=== PATIENT | male | born 1980 | race Caucasian/White ===

== ENCOUNTER 2018-01-17 13:46 | Emergency (ER) | payer MEDICAID, SELFPAY ==
[2018-01-17 13:47] VITALS: BP 160/107; PULSE 68; RESP 16; TEMP 36.8; O2SAT 97; BMI 27.1
--- NOTE | 2018-01-17 14:00 | RAD_ITS ---
STUDY: X-RAY - RIGHT WRIST REASON FOR EXAM: Pain and swelling after lifting injury last night. TECHNIQUE: 3 view(s) of the wrist were obtained. COMPARISON: None. FINDINGS: Normal visualized distal radius and ulna. Normal radiocarpal articulation. Normal distal radioulnar articulation. Normal carpal bones. Normal carpal articulations. Normal carpometacarpal articulation of the thumb. Normal second through fifth carpometacarpal articulations. Normal visualized metacarpal bones. There is mild soft tissue swelling. RAD/Wrist min 3 Views IMPRESSION: Mild soft tissue swelling. No demonstrated fracture. Electronically Signed: Remi Miller MD at 15:00 EDT Tel , Service support ,
--- NOTE | 2018-01-17 14:26 | ED.DCSUM_ITS ---
- ER Visit Summary Date of Service: 01/17/18 Chief Complaint: Right wrist pain History of Present Illness: The patient is a 37 M who complains of right wrist pain. It started yesterday after he was moving hay. Pain is on the ulnar portion of the wrist. Pain is worse with movement. He took nothing for it at home. No history of any wrist surgeries Physical Examination: Vital signs reviewed. Right wrist exam reveals tenderness to palpation over Naty's tubercle. He does have painful range of motion. Test Results: X-rays per my interpretation revealed no acute findings. Emergency Department Course and Treatment: Patient will be discharged with naproxen for pain. He will ice and will follow up with his PCP. Treatment Plan: [] Disposition: Discharge Impression: Right wrist sprain This note was generated with [employer] dictation software. It may contain incorrect words, spelling, and punctuation that were not noted in review of the chart prior to signing ED Disposition - Plan for ED Patient: Chief Complaint: Upper Extremity Injury Referrals: Garrett Durham MD [Primary Care Provider] -
--- NOTE | 2018-01-17 14:26 | ED.DEP ---
ED Disposition - Plan for ED Patient: Disposition: Home or Assisted Living Chief Complaint: Upper Extremity Injury Instructions: ED Sprain Wrist Prescriptions: Naproxen [Naprosyn] 500 mg PO BID PRN #20 tab Referrals: Garrett Durham MD [Primary Care Provider] -
== END 2018-01-17 14:37 | disposition home or self-care (01) ==
PROVIDERS: Emergency Provider Emergency Medicine; Family Provider Family Medicine; PCP Family Medicine
DX: S63.501A Unspecified sprain of right wrist, initial encounter (principal); X50.3XXA Overexertion from repetitive movements, initial encounter; Y93.9 Activity, unspecified; Y92.89 Other specified places as the place of occurrence of the external cause; Y99.9 Unspecified external cause status
CPT/HCPCS: 73110; 99282

== ENCOUNTER → 2018-03-31 16:09 | Outpatient (CLI) | payer MEDICAID, SELFPAY ==
[2018-03-31 17:38] LABS: Absolute Lymphocyte Count 2.87 X10^3/ul (0.83-4.51); Absolute Neutrophil Count 3.8 X10^3/uL (2.0-7.7); Basophil# 0.03 X10^3/uL; Basophil% 0.4 % (0-1); Eosinophil# 0.28 X10^3/uL; Eosinophils% 3.8 % (0-5); Hemoglobin 15.5 g/dl (13.0-16.5); Lymphocyte # 2.87 X10^3/ul (4.0); Lymphocyte % 38.5 % (19-41); Mean Corp Hgb Conc 35.2 g/gl (32-36); Mean Corpuscular Hgb 32.8 pg (27.0-32.0); Mean Corpuscular Volume 93.2 fL (80-94); Mean Platelet Vol. 10.7 fl (6.2-12.0); Monocyte% 6.7 % (0-10); Neutrophil # 3.76 X10^3/uL (2.7-7.7); Neutrophil % 50.5 % (47-70); Platelet Count 282 K/mm3 (150-450); RBC Distribution Width CV 12.4 % (11.6-14.6); RBC Distribution Width SD 41.9 fl (35.1-43.9); Red Blood Count 4.72 M/mm3 (4.6-6.2); White Blood Count 7.5 K/mm3 (4.4-11.0)
[2018-03-31 17:43] LABS: POSITIVE COUNT NO; POSITIVE DIFFERENTIAL NO; POSITIVE MORPHOLOGY NO
[2018-03-31 18:37] LABS: Carbamazepine (Tegretol) 8.8 ug/mL (4.0-12.0)
[2018-03-31 18:43] LABS: AST(SGOT) 17 U/L (15-37); Alanine Aminotransfer ALT/SGPT 31 U/L (16-61); Albumin, Serum 3.7 g/dL (3.2-5.0); Alkaline Phosphatase 128 U/L (45-117); Anion Gap 10 (5-15); BUN 9 mg/dL (7-18); BUN/Creat Ratio 10.7 RATIO (10-20); Calcium,Total 9.1 mg/dL (8.5-10.1); Chloride 105 mmol/L (98-107); Creatinine, Serum 0.84 mg/dL (0.70-1.30); EST Glomerular Filtration Rate 108 mL/min (>60); Est Glom Filt Rate - Afr Amer 131 mL/min (>60); Globulin 3.8 g/dL (2.2-4.2); Glucose 92 mg/dL (74-106); Potassium 3.5 mmol/L (3.5-5.1); Protein, Total 7.5 g/dL (6.4-8.2); Sodium Level 142 mmol/L (136-145)
== END ==
PROVIDERS: Family Provider Family Medicine; PCP Family Medicine; Visit Provider Family Medicine
DX: G40.909 Epilepsy, unspecified, not intractable, without status epilepticus (principal)
CPT/HCPCS: 36415; 80053; 80156; 85025

== ENCOUNTER 2018-10-25 10:29 | Emergency (ER) | payer BC, SELFPAY ==
[2018-10-25 10:30] VITALS: BP 145/93; PULSE 70; RESP 14; TEMP 36.1; O2SAT 98; BMI 28.1
--- NOTE | 2018-10-25 11:01 | RAD_ITS ---
STUDY: X-RAY - LEFT HAND REASON FOR EXAM: Male, 38 years old. Soft tissue injury. TECHNIQUE: 3 view(s) of the hand. COMPARISON: None. FINDINGS: Normal radiocarpal articulation. Normal distal radioulnar joint. Normal visualized carpal bones. Normal carpal articulations Normal carpometacarpal articulation of the thumb. Normal second through fifth carpometacarpal joints. Normal metacarpi. Normal metacarpophalangeal joint of the thumb. Normal interphalangeal joint of the thumb. Normal proximal and distal phalanges of the thumb. Normal metacarpophalangeal joints of the second through fifth fingers. Normal proximal and distal interphalangeal joints of the second through fifth fingers. Normal phalanges of the second through fifth fingers. The soft tissue structures are unremarkable. RAD/Hand Min 3 Views IMPRESSION: Normal x-ray examination of the hand. Electronically Signed: Negro Mitchell, at 12:18 EDT , Service support ,
[2018-10-25] MEDS: Diphth,Pertuss(Acell),Tet Vac 0.5 ML Vial IM (11:17)
[2018-10-25] MEDS: Cephalexin 250 MG Capsule 500 MG PO (11:18)
--- NOTE | 2018-10-25 12:21 | ED.VISSUMM ---
- ER Visit Summary Date of Service: 10/25/18 Chief Complaint: Puncture wound left hand History of Present Illness: The patient is a 38 M who presents with a puncture wound to his left hand that occurred today. Patient states he was using a screwdriver to try to remove wood from a hole. Patient states the screwdriver went into his hand approximately 2 cm. Patient describes his pain as burning and sharp. Patient states the pain is worse with movement. Patient denies any paresthesias or weakness. Patient states his last tetanus was more than 10 years ago. Physical Examination: Vital signs are stable. Patient is afebrile. Patient is in no acute distress. Musculoskeletal exam revealed a puncture wound in the first webspace of the left hand. There is no active bleeding. There is tenderness to palpation over the first webspace. There is no surrounding erythema. There is good range of motion of the digits of the left hand. There are no deformities noted. There is no bony crepitance or step-off. Sensation was intact to light touch in all digits. Capillary refill is less than 2 seconds in all digits. Radial pulses are equal bilaterally. Test Results: X-rays of the left hand were obtained. There are no acute fractures or foreign bodies. Emergency Department Course and Treatment: Patient was given a tetanus booster here. Patient was given a dose of Keflex here. Patient was given a prescription for Keflex. Patient was instructed to follow-up with his primary care physician in 5 to 7 days. Patient understood and was agreeable with the plan. All questions were answered. Disposition: Discharge home Impression: Puncture wound left hand This note was generated with [employer] dictation software. It may contain incorrect words, spelling, and punctuation that were not noted in review of the chart prior to signing ED Disposition - Plan for ED Patient: Disposition: Home or Assisted Living Diagnosis: Puncture wound of left hand Instructions: ED Wound Puncture General Prescriptions: Cephalexin [Keflex] 500 mg PO Q6 #40 cap Referrals: Garrett Durham MD [Primary Care Provider] - 5-7 Days
--- NOTE | 2018-10-25 12:26 | ED.DCSUM_ITS ---
- ER Visit Summary Date of Service: 10/25/18 Chief Complaint: Puncture wound left hand History of Present Illness: The patient is a 38 M who presents with a puncture wound to his left hand that occurred today. Patient states he was using a screwdriver to try to remove wood from a hole. Patient states the screwdriver went into his hand approximately 2 cm. Patient describes his pain as burning and sharp. Patient states the pain is worse with movement. Patient denies any paresthesias or weakness. Patient states his last tetanus was more than 10 years ago. Physical Examination: Vital signs are stable. Patient is afebrile. Patient is in no acute distress. Musculoskeletal exam revealed a puncture wound in the first webspace of the left hand. There is no active bleeding. There is tenderness to palpation over the first webspace. There is no surrounding erythema. There is good range of motion of the digits of the left hand. There are no deformities noted. There is no bony crepitance or step-off. Sensation was intact to light touch in all digits. Capillary refill is less than 2 seconds in all digits. Radial pulses are equal bilaterally. Test Results: X-rays of the left hand were obtained. There are no acute fractures or foreign bodies. Emergency Department Course and Treatment: Patient was given a tetanus booster here. Patient was given a dose of Keflex here. Patient was given a prescr iption for Keflex. Patient was instructed to follow-up with his primary care physician in 5 to 7 days. Patient understood and was agreeable with the plan. All questions were answered. Disposition: Discharge home Impression: Puncture wound left hand This note was generated with [employer] dictation software. It may contain incorrect words, spelling, and punctuation that were not noted in review of the chart prior to signing ED Disposition - Plan for ED Patient: Disposition: Home or Assisted Living Diagnosis: Puncture wound of left hand Instructions: ED Wound Puncture General Prescriptions: Cephalexin [Keflex] 500 mg PO Q6 #40 cap Referrals: Garrett Durham MD [Primary Care Provider] - 5-7 Days
== END 2018-10-25 12:37 | disposition home or self-care (01) ==
PROVIDERS: Emergency Provider Emergency Medicine; Family Provider Family Medicine; PCP Family Medicine
DX: S61.432A Puncture wound without foreign body of left hand, initial encounter (principal); W27.0XXA Contact with workbench tool, initial encounter; Y93.9 Activity, unspecified; Y92.89 Other specified places as the place of occurrence of the external cause; Y99.9 Unspecified external cause status; Z23 Encounter for immunization; Z72.0 Tobacco use
CPT/HCPCS: 73130; 90471; 90715; 99283

== ENCOUNTER → 2019-02-09 09:04 | Outpatient (CLI) | payer BC, SELFPAY ==
[2019-02-09 10:10] LABS: Absolute Lymphocyte Count 2.39 X10^3/uL (0.83-4.51); Basophil# 0.03 X10^3/uL; Basophil% 0.3 % (0-1); Eosinophil# 0.07 X10^3/uL; Eosinophils% 0.8 % (0-5); Hematocrit 47.6 % (40-54); Hemoglobin 16.2 g/dL (13.0-16.5); Lymphocyte # 2.39 X10^3/ul (4.0); Lymphocyte % 26.7 % (19-41); Mean Corpuscular Hgb 32.3 pg (27.0-32.0); Mean Corpuscular Volume 94.8 fL (80-94); Mean Platelet Vol. 10.4 fl (6.2-12.0); Monocyte# 0.46 X10^3/uL; Monocyte% 5.1 % (0-10); NRBC Flagged by Analyzer 0 % (0-5); Neutrophil # 5.97 X10^3/uL (2.7-7.7); Neutrophil % 66.8 % (47-70); Platelet Count 252 K/mm3 (150-450); RBC Distribution Width CV 12.2 % (11.6-14.6); RBC Distribution Width SD 42.3 fl (35.1-43.9); Red Blood Count 5.02 M/mm3 (4.6-6.2)
[2019-02-09 10:29] LABS: ALB/GLOB Ratio 1.1 RATIO (0.9-2.4); AST(SGOT) 16 U/L (15-37); Alanine Aminotransfer ALT/SGPT 33 U/L (16-61); Albumin, Serum 3.9 g/dL (3.2-5.0); Alkaline Phosphatase 110 U/L (45-117); Anion Gap 7 (5-15); BUN 10 mg/dL (7-18); BUN/Creat Ratio 10.6 RATIO (10-20); Chloride 106 mmol/L (98-107); Cholesterol 211 mg/dL (200); Creatinine, Serum 0.95 mg/dL (0.70-1.30); EST Glomerular Filtration Rate 94 mL/min (>60); Est Glom Filt Rate - Afr Amer 113 mL/min (>60); Globulin 3.7 g/dL (2.2-4.2); Glucose 109 mg/dL (74-106); High Density Lipoprotein 58 mg/dL; Potassium 3.9 mmol/L (3.5-5.1); Protein, Total 7.6 g/dL (6.4-8.2); Sodium Level 142 mmol/L (136-145); Triglycerides 107 mg/dL; Very Low Density Lipoprotein 21 mg/dL (5-40)
[2019-02-09 10:44] LABS: Carbamazepine (Tegretol) 9.3 ug/mL (4.0-12.0)
== END ==
PROVIDERS: Family Provider Family Medicine; PCP Family Medicine; Referring Provider Family Medicine; Visit Provider Family Medicine
DX: Z13.220 Encounter for screening for lipoid disorders (principal); G40.909 Epilepsy, unspecified, not intractable, without status epilepticus
CPT/HCPCS: 36415; 80053; 80061; 80156; 85025

== ENCOUNTER → 2019-09-11 08:49 | Outpatient (CLI) | payer OTHER, SELFPAY ==
--- NOTE | 2019-09-11 08:59 | RAD_ITS ---
STUDY: X-RAY CHEST REASON FOR EXAM: Male, 38 years old. COUGH x2 WEEKS, FATIGUE, DIARRHEA, VOMITING, SORE THROAT AND LOW-GRADE FEVER TECHNIQUE: PA and lateral views of the chest. COMPARISON: Comparison is made with prior study dated March 23, 2017. FINDINGS: Left clavicular fracture repaired with a screw and plate fixation device. There is good alignment. Stable mild increased markings at the lung bases suggestive of scarring. There is no demonstrated pleural abnormality. Normal size heart. Normal mediastinum and melisa. Normal visualized pulmonary arteries. Normal visualized aortic arch and descending thoracic aorta. Normal visualized thoracic spine. Normal visualized ribs, clavicles, and shoulders. There is no demonstrated abnormality of the visualized soft tissue structures of the upper abdomen. RAD/Chest PA and Lateral IMPRESSION: Mild degree of bibasilar scarring. Status post open reduction internal fixation of the left clavicular fracture. Electronically Signed: Negro Mitchell, at 9:15 EDT , Service support ,
[2019-09-11 10:20] LABS: Absolute Lymphocyte Count 2.57 X10^3/uL (0.83-4.51); Absolute Neutrophil Count 5.5 X10^3/uL (2.0-7.7); Basophil# 0.05 X10^3/uL; Basophil% 0.6 % (0-1); Eosinophil# 0.21 X10^3/uL; Eosinophils% 2.4 % (0-5); Hematocrit 49.9 % (40-54); Hemoglobin 17.4 g/dL (13.0-16.5); Lymphocyte # 2.57 X10^3/ul (4.0); Mean Corp Hgb Conc 34.9 g/dL (32-36); Mean Corpuscular Hgb 33.3 pg (27.0-32.0); Mean Corpuscular Volume 95.6 fL (80-94); Mean Platelet Vol. 10.8 fl (6.2-12.0); Monocyte# 0.49 X10^3/uL; Monocyte% 5.5 % (0-10); NRBC Flagged by Analyzer 0 % (0-5); Neutrophil % 62.2 % (47-70); Platelet Count 204 K/mm3 (150-450); RBC Distribution Width CV 12.9 % (11.6-14.6); RBC Distribution Width SD 44.9 fl (35.1-43.9); Red Blood Count 5.22 M/mm3 (4.6-6.2); White Blood Count 8.9 K/mm3 (4.4-11.0)
[2019-09-11 10:38] LABS: ALB/GLOB Ratio 1.2 RATIO (0.9-2.4); AST(SGOT) 32 U/L (15-37); Alanine Aminotransfer ALT/SGPT 55 U/L (16-61); Albumin, Serum 4.3 g/dL (3.2-5.0); Alkaline Phosphatase 127 U/L (45-117); Anion Gap 4 (5-15); BUN 16 mg/dL (7-18); BUN/Creat Ratio 16.1 RATIO (10-20); Calcium,Total 9.2 mg/dL (8.5-10.1); Chloride 106 mmol/L (98-107); Cholesterol 264 mg/dL (200); Creatinine, Serum 0.99 mg/dL (0.70-1.30); EST Glomerular Filtration Rate 88 mL/min (>60); Est Glom Filt Rate - Afr Amer 107 mL/min (>60); Globulin 3.7 g/dL (2.2-4.2); Glucose 88 mg/dL (74-106); High Density Lipoprotein 66 mg/dL; Potassium 3.9 mmol/L (3.5-5.1); Sodium Level 141 mmol/L (136-145); Triglycerides 181 mg/dL; Very Low Density Lipoprotein 36 mg/dL (5-40)
[2019-09-11 10:51] LABS: Carbamazepine (Tegretol) 11.3 ug/mL (4.0-12.0)
[2019-09-11 13:27] LABS: Magnesium 2.1 mg/dL (1.6-2.6)
== END ==
PROVIDERS: PCP Family Medicine; Referring Provider Family Medicine; Visit Provider Family Medicine
DX: R05 Cough (principal); G40.909 Epilepsy, unspecified, not intractable, without status epilepticus; Z13.220 Encounter for screening for lipoid disorders
CPT/HCPCS: 36415; 71046; 80053; 80061; 80156; 83735; 85025

== ENCOUNTER → 2019-09-21 08:50 | Outpatient (CLI) | payer OTHER, SELFPAY | PROVIDERS: PCP Family Medicine; Referring Provider Family Medicine; Visit Provider Family Medicine | DX: R19.7 Diarrhea, unspecified (principal) | CPT/HCPCS: 87177; 87209; 87506 ==

== ENCOUNTER → 2020-08-01 08:29 | Outpatient (CLI) | payer OTHER, SELFPAY ==
[2020-08-01 10:24] LABS: Absolute Lymphocyte Count 1.78 X10^3/uL (0.83-4.51); Absolute Neutrophil Count 3.3 X10^3/uL (2.0-7.7); Basophil# 0.04 X10^3/uL; Basophil% 0.7 % (0-1); Eosinophils% 1.8 % (0-5); Hematocrit 45.4 % (40-54); Hemoglobin 15.3 g/dL (13.0-16.5); Lymphocyte # 1.78 X10^3/ul (4.0); Lymphocyte % 31.4 % (19-41); Mean Corp Hgb Conc 33.7 g/dL (32-36); Mean Corpuscular Hgb 30.8 pg (27.0-32.0); Mean Corpuscular Volume 91.3 fL (80-94); Mean Platelet Vol. 10.5 fl (6.2-12.0); Monocyte# 0.39 X10^3/uL; Monocyte% 6.9 % (0-10); NRBC Flagged by Analyzer 0 % (0-5); Neutrophil # 3.34 X10^3/uL (2.7-7.7); Platelet Count 273 K/mm3 (150-450); RBC Distribution Width CV 12.5 % (11.6-14.6); RBC Distribution Width SD 41.8 fl (35.1-43.9); Red Blood Count 4.97 M/mm3 (4.6-6.2); White Blood Count 5.7 K/mm3 (4.4-11.0)
[2020-08-01 10:41] LABS: ALB/GLOB Ratio 1.1 RATIO (0.9-2.4); AST(SGOT) 20 U/L (15-37); Alanine Aminotransfer ALT/SGPT 24 U/L (16-61); Alkaline Phosphatase 155 U/L (45-117); Anion Gap 4 (5-15); BUN 9 mg/dL (7-18); BUN/Creat Ratio 8.3 RATIO (10-20); Calcium,Total 9.2 mg/dL (8.5-10.1); Chloride 103 mmol/L (98-107); Creatinine, Serum 1.08 mg/dL (0.70-1.30); EST Glomerular Filtration Rate 80 mL/min (>60); Est Glom Filt Rate - Afr Amer 97 mL/min (>60); Globulin 3.5 g/dL (2.2-4.2); Glucose 70 mg/dL (74-106); Potassium 3.8 mmol/L (3.5-5.1); Protein, Total 7.5 g/dL (6.4-8.2); Sodium Level 137 mmol/L (136-145); Thyroid Stim Hormone (TSH) 0.42 uIU/mL (0.358-3.74)
[2020-08-01 11:24] LABS: Carbamazepine (Tegretol) 11.1 ug/mL (4.0-12.0)
== END ==
PROVIDERS: PCP Family Medicine; Referring Provider Family Medicine; Visit Provider Family Medicine
DX: Z79.899 Other long term (current) drug therapy (principal)
CPT/HCPCS: 36415; 80053; 80156; 84443; 85025

== ENCOUNTER 2020-12-19 15:51 | Emergency (ER) | payer OTHER, SELFPAY ==
[2020-12-19 15:52] VITALS: BP 137/77; PULSE 77; RESP 15; TEMP 37; O2SAT 98; BMI 25.8
--- NOTE | 2020-12-19 16:01 | RAD_ITS ---
STUDY: X-RAY - RIGHT SHOULDER REASON FOR EXAM: Male, 40 years old. fall TECHNIQUE: 4 view(s) of the shoulder. COMPARISON: None. FINDINGS: Normal glenohumeral articulation. Normal acromioclavicular joint. Normal acromion. Normal humeral head and visualized proximal humerus. The soft tissue structures are unremarkable. There is no demonstrated fracture. Normal visualized pulmonary apex. RAD/Shoulder min 2 Views IMPRESSION: Normal x-ray examination of the shoulder. Electronically Signed: Marcellus Estrada MD at 16:48 EDT , Service support ,
--- NOTE | 2020-12-19 16:02 | EX.ED.UPPERE ---
HPI History of Present Illness Chief Complaint: Upper Extremity Injury Detail of Chief Complaint: Fall with injury to right shoulder Informant: patient Narrative Narrative: Patient states that he was up in a tree cutting firewood about 2 hours ago when he lost his balance and fell out of the tree. Patient states this happened several hours ago. He denies loss of consciousness. He thinks he landed on his right shoulder and upper back. He denies head or neck pain. He complains of pain to the right posterior shoulder and elbow area. Denies chest or abdomen pain. He denies difficulty breathing. He denies back pain otherwise. Patient is right-hand dominant. [facility] Medical History (Updated 12/19/20 @ 17:[address] Loly Hollis, ) Anxiety Contusion of right shoulder region Depression Seizures Home Medications buspirone 30 mg PO BID 12/24/14 [History Last Taken Unknown] levetiracetam 500 mg PO QHS 12/24/14 [History Last Taken 03/23/17 07:00 500 MG] citalopram 20 mg tablet 40 mg PO QDAY 05/31/17 [History Last Taken Unknown] carbamazepine 200 mg PO 5X/DAY 10/25/18 [History Last Taken Unknown] aripiprazole 5 mg PO DAILY 12/19/20 [History Last Taken Unknown] hydrocodone-acetaminophen 1 tab PO Q4H PRN PRN 2 Days #10 tablet 12/19/20 [Rx Last Taken Unknown] levetiracetam [Keppra] 750 mg PO BREAKFAST 12/19/20 [History Last Taken Unknown] omeprazole 40 mg PO DAILY 12/19/20 [History Last Taken Unknown] Allergy/AdvReac Type Severity Reaction Status Date / Time MUSCLE RELAXANTS Allergy SEIZURE Uncoded 12/19/20 15:54 LIKE ACTIVITY Surgical History History of open reduction and internal fixation (ORIF) procedure laser spine Social History (Updated 08/05/18 @ 15:51 by Alfredo SABILLON, RAMANDEEP) Smoking Status: Former smoker ROS ROS ED Constitutional Constitutional ED: Reports systems reviewed and no addt'l complaints, except as documented; Denies body ache(s), change in weight or chills Eyes Eyes: Denies acute decrease in peripheral vision, change in vision, double vision or loss of vision ENT ENT ED: Reports none; Denies ear pain, lip swelling, loss taste/smell, neck pain, otalgia or sore throat Cardiovascular Cardiovascular: Reports none; Denies abdominal pain, chest pain with activity, leg edema, lightheadedness, palpitations, rapid heart rate or syncope Respiratory/Chest Respiratory/Chest: Reports none; Denies change in mental status, dry cough, dyspnea, hemoptysis, shortness of breath at rest or shortness of breath with exertion Gastrointestinal Gastrointestinal: Reports none; Denies abdominal pain, change in stool character, diarrhea, hematemesis, hematochezia, melena, rectal bleeding or vomiting Genitourinary Genitourinary ED: Reports none; Denies abdominal discomfort, anuria, dysuria, genital pain or polyuria Musculoskeletal Musculoskeletal: Reports none and other Details: Right shoulder/arm pain ; Denies arthralgias, back pain, difficulty walking, extremity pain, muscle weakness or myalgias Integumentary Reports none; Denies abscess or rash Neurologic Neurologic: Reports none; Denies abnormal gait, confusion, focal weakness, frequent falls, headache(s), loss of vision, numbness, paresthesias, radicular pain, vertigo or weakness Psychiatric Psychiatric: Reports systems reviewed and no addt'l complaints, except as documented and none; Denies behavioral changes, confusion, difficulty concentrating, hallucinations, suicidal ideation, tactile hallucinations or visual hallucinations Endocrine Endocrinology: Denies none, cold intolerance, excessive sweating, fatigue or heat intolerance Hematologic/Lymphatic Hematologic/Lymphatic: Reports none; Denies anemia, easy bleeding or easy bruising Allergic/Immunologic Allergic/Immunologic ED: Denies as per HPI, none, lip swelling, mouth swelling, throat swelling, tongue swelling or hives EXAM Physical Exam Const Vital Signs: 12/19/20 15:52 Temperature 98.6 F Temperature Source Temporal Pulse Rate 77 Respiratory Rate 15 Blood Pressure 137/77 H Blood Pressure Mean 97 Pulse Ox 98 Oxygen Delivery Method Room Air Positive well nourished and well developed General Appearance ED: well developed and NAD HEENT Reports TM's clear and moist mucous membranes normocephalic and atraumatic; Negative for trauma or tenderness Tympanic Membrane ED: Yes TM's clear Eyes PERRL and EOMs intact bilaterally General Eye ED: Negative for pale conjunctiva or scleral icterus Neck no lymphadenopathy, supple and no JVD General: Negative for tenderness Chest Wall inspection of chest normal and palpation of chest normal Chest: Negative for tenderness Resp normal respiratory effort and clear to auscultation bilaterally Effort and Inspection: Negative for respiratory distress or pain with movement Auscultation: Negative for rhonchi, wheezes or diminished lung sounds Cardio regular rate, regular rhythm, S1 normal heart sound, S2 normal heart sound and no murmurs Peripheral Pulses: pulses 2+ throughout GI normal to inspection, nondistended, normoactive bowel sounds, soft to palpation, non-tender, non-distended and no masses Back/Spine no CVA tenderness and no thoracic nor lumbar tenderness Extremity normal to inspection Extremity Narrative: Evaluation of the right shoulder reveals some soft tissue swelling over the posterior aspect of the shoulder and over the scapula that is tender to palpation. Patient has some mild tenderness over the glenohumeral joint. Patient has some tenderness at the elbow diffusely. No obvious deformity noted at the shoulder or elbow. Neurovascular intact distally. General Extremety ED: Negative for edema General Extremity: Negative for edema Neuro oriented x3, CN's II-XII intact bilaterally, no sensory deficits noted and gait normal Sensorium / Orientation: awake, alert, oriented to person, oriented to place and oriented to time Motor Exam: strength 5/5 throughout and strength abnormal Psych mental status grossly normal Skin no rashes or lesions noted and no wounds MDM MDM MDM Narrative Medical decision making narrative: X-ray of right shoulder, right scapula, and right elbow obtained showed no fractures. Patient was given a sling. He will be given a prescription for few [place]. Patient advised to follow-up with primary care physician in 5 to 7 days. Radiography Diagnostic Testing: X-rays of right elbow, right shoulder, and right scapula obtained interpreted by myself as no acute fractures. Radiology in agreement. Discharge Plan Triage Chief Complaint: Upper Extremity Injury ED Provider: Loly Hollis Dx/Rx/DC Orders Clinical Impression: Contusion of right shoulder region, Contusion of back, Contusion of elbow Instructions: ED Contusion, Elbow, ED Shoulder Contusion Prescriptions: New hydrocodone-acetaminophen [hydrocodone-acetaminophen] 1 TABLET tablet 1 tab PO Q4H PRN PRN (Reason: Pain) 2 Days Qty: 10 RF: 0 No Action citalopram 20 mg tablet 40 mg PO QDAY RF: 0 levetiracetam 500 MG tablet 500 mg PO QHS RF: 0 buspirone 30 MG tablet 30 mg PO BID RF: 0 carbamazepine 200 MG tablet 200 mg PO 5X/DAY RF: 0 omeprazole 40 mg Capsule,Delayed Release(Dr/Ec) 40 mg PO DAILY RF: 0 levetiracetam [Keppra] 750 mg Tablet 750 mg PO BREAKFAST RF: 0 aripiprazole 5 mg Tablet 5 mg PO DAILY RF: 0 Primary Care Provider: Garrett Ramirez Referrals: Garrett Ramirez MD [Primary Care Provider] - 5-7 Days Disposition Disposition: Home, Self Care
--- NOTE | 2020-12-19 16:16 | RAD_ITS ---
STUDY: X-RAY - RIGHT ELBOW REASON FOR EXAM: Male, 40 years old. FELL OUT OF A TREE AND LANDED ON HIS RIGHT SHOULDER. PAIN RADIATING DOWN ARM TO ELBOW TECHNIQUE: 3 view(s) of the elbow. COMPARISON: None. FINDINGS: Normal visualized humerus, radius and ulna. Normal radiocapitellar and ulnotrochlear articulations. The soft tissue structures are unremarkable. There is no demonstrated fracture. RAD/Elbow min 3 Views IMPRESSION: Normal x-ray examination of the elbow. Electronically Signed: Marcellus Estrada MD at 16:49 EDT , Service support ,
--- NOTE | 2020-12-19 16:16 | RAD_ITS ---
STUDY: X-RAY - RIGHT SCAPULA REASON FOR EXAM: Male, 40 years old. FELL OUT OF TREE TODAY. PAIN POSTERIOR SCAPULA JUST MEDIAL TO SHOULDER JOINT TECHNIQUE: 2 view(s) of the scapula were obtained. COMPARISON: Right shoulder x-ray on the same day FINDINGS: Normal scapula, including the osseous glenoid rim, acromion, scapular neck, spine, coracoid process, and visualized body. Normal glenohumeral articulation. Normal acromioclavicular joint. Normal visualized humeral head. Normal visualized pulmonary apex. RAD/Scapula IMPRESSION: Normal plain film x-ray examination of the scapula. Electronically Signed: Marcellus Estrada MD at 17:00 EDT , Service support ,
== END 2020-12-19 17:35 | disposition home or self-care (01) ==
PROVIDERS: Emergency Provider Emergency Medicine; PCP Family Medicine
DX: S40.011A Contusion of right shoulder, initial encounter (principal); S20.229A Contusion of unspecified back wall of thorax, initial encounter; S50.01XA Contusion of right elbow, initial encounter; F41.9 Anxiety disorder, unspecified; Z79.899 Other long term (current) drug therapy; Z87.891 Personal history of nicotine dependence; W14.XXXA Fall from tree, initial encounter
CPT/HCPCS: 73010; 73030; 73080; 99284

== ENCOUNTER → 2020-12-26 11:17 | Outpatient (CLI) | payer OTHER, SELFPAY ==
[2020-12-19 15:52] VITALS: BMI 25.8
[2020-12-26 12:10] LABS: Absolute Lymphocyte Count 2.46 X10^3/uL (0.83-4.51); Absolute Neutrophil Count 5.6 X10^3/uL (2.0-7.7); Basophil# 0.04 X10^3/uL; Basophil% 0.5 % (0-1); Eosinophils% 1.2 % (0-5); Hematocrit 44.1 % (40-54); Hemoglobin 14.9 g/dL (13.0-16.5); Lymphocyte # 2.46 X10^3/ul (0.83-4.51); Lymphocyte % 28.6 % (19-41); Mean Corp Hgb Conc 33.8 g/dL (32-36); Mean Corpuscular Hgb 31.7 pg (27.0-32.0); Mean Corpuscular Volume 93.8 fL (80-94); Mean Platelet Vol. 10.6 fl (6.2-12.0); Monocyte# 0.41 X10^3/uL; Monocyte% 4.8 % (0-10); NRBC Flagged by Analyzer 0 % (0-5); Neutrophil # 5.55 X10^3/uL (2.7-7.7); Neutrophil % 64.4 % (47-70); Platelet Count 248 K/mm3 (150-450); RBC Distribution Width CV 13.6 % (11.6-14.6); RBC Distribution Width SD 46.9 fl (35.1-43.9); White Blood Count 8.6 K/mm3 (4.4-11.0)
[2020-12-26 12:42] LABS: Anion Gap 9 (5-15); BUN 8 mg/dL (7-18); BUN/Creat Ratio 8.8 RATIO (10-20); Calcium,Total 8.6 mg/dL (8.5-10.1); Chloride 98 mmol/L (98-107); Cholesterol 209 mg/dL (200); Creatinine, Serum 0.91 mg/dL (0.70-1.30); EST Glomerular Filtration Rate 97 mL/min (>60); Est Glom Filt Rate - Afr Amer 118 mL/min (>60); Glucose 102 mg/dL (74-106); High Density Lipoprotein 71 mg/dL; Potassium 3.7 mmol/L (3.5-5.1); Sodium Level 137 mmol/L (136-145); Triglycerides 138 mg/dL; Very Low Density Lipoprotein 28 mg/dL (5-40)
[2020-12-26 12:48] LABS: Carbamazepine (Tegretol) 12.1 ug/mL (4.0-12.0)
[2020-12-29 07:32] LABS: KEPPRA (LEVETIRACETAM) 12.7 ug/mL (10.0-40.0)
== END ==
PROVIDERS: PCP Family Medicine; Referring Provider Family Medicine; Visit Provider Family Medicine
DX: E78.5 Hyperlipidemia, unspecified (principal); G40.909 Epilepsy, unspecified, not intractable, without status epilepticus
CPT/HCPCS: 36415; 80048; 80061; 80156; 80177; 85025

== ENCOUNTER 2021-06-10 13:51 | Outpatient (RCR) | payer OTHER, SELFPAY ==
--- NOTE | 2021-06-10 15:32 | HP.PTEVAL ---
Patient's Visit Information SHANDRA HOUSTON is a 40 year old M referred to Physical Therapy by Dr. Semaj Godoy, with a diagnosis of BERTOLOTTIS SYNDROME. Date of Evaluation: 06/10/21 Physical Therapist: Cesar Diop, PT, Cert MDT, OCS - Visit Plan Frequency: 1-2x /Week Duration: 4 Weeks Plan: SEIZURES PRECAUTIONS. PT INTERVENTIONS PT DLS ,POSTURAL EX'S ,LE FLEXABLITY AND KHADAR EX'S - Subjective This 40 y/o male presents physical therapy with lumbar pain with radicular symptoms right lateral leg to knee. Patient has had these symptoms for~ 6 years . Patient initially inquired lumbar pain bending over to picking a part. Tried PT and had epidural injection ~ years ago. Symptoms persisted thus seen DR Godoy. 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 Not a surgical candidate. recommended PT .Aggravating factors sitting, bending ,lifting ,laying down . Alleviating factors standing ,walking. Coughing/sneezing -. Denies paresthesia/tingling. Bowel/bladder -. Patient able to sleep at night . No abnormal night pain. 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 SOCAIL: . VOCATION: [employer] - Pain Bilateral Back Pain Intensity (Out of 10): 4 Pain Intensity Range: 10 - Objective POSTURE: slouched posture. PALAPTION: unremarkable. SYMMTRIES: align. LUMBAR ROM: flexion min loss, extension mod loss, side glides mod loss. FLEXABLITY: hamstrings mod loss. MMT: quads/hams 4/5,hip flexion 4/5,ankle 5/5 - Special Tests L/S Slump test left side: Positive L/S Slump test right side: Positive L/S Left Straight Leg Raise: Negative L/S Right Straight Leg Raise: Positive Lumbar Standing: Flexion - Mechanical Response: No effect Lumbar Standing: Flexion - Symptoms During Testing: Increases Lumbar Standing: Flexion - Symptoms After Testing: Worse Lumbar Standing: Extension - Mechanical Response: No effect Lumbar Standing: Extension - Symptoms During Testing: Increases Lumbar Standing: Extension - Symptoms After Testing: Worse Lumbar Standing: Right Side Glides - Mechanical Response: No effect Lumbar Standing: Right Side [place] - Symptoms During Testing: No effect Lumbar Standing: Right Side [place] - Symptoms After Testing: No effect Lumbar Standing: Left Side [place] - Mechanical Response: No effect Lumbar Standing: Left Side [place] - Symptoms During Testing: No effect Lumbar Standing: Left Side [place] - Symptoms After Testing: No effect Lumbar Lying: Flexion - Mechanical Response: No effect Lumbar Lying: Flexion - Symptoms During Testing: No effect Lumbar Lying: Flexion - Symptoms After Testing: No effect Lumbar Lying: Extension - Mechanical Response: No effect Lumbar Lying: Extension - Symptoms During Testing: Increases Lumbar Lying: Extension - Symptoms After Testing: No worse - Balance/Special Test Scores Oswestry Low Back Score: 19 - Goals Goal 1:: I with HEP for back Goal Time Frame: 4-6 Weeks Goal 2:: Patient improve posture/body mechanics 90% of the time. Goal Time Frame: 4-6 Weeks Goal 3:: Patient to demonstrate 50%vimprovement with decrease back pain to improve function Goal Time Frame: 4-6 Weeks Goal 4:: Patient to improve lumbar ROM for function of recovery Goal Time Frame: 4-6 Weeks Goal 5:: Patient to improve back owestry score by 5 points to improve QOL and function Goal Time Frame: 4-6 Weeks - Rehabilitation Potential Physical Therapy Diagnosis: This patient has symmetrical low back pain with radicular symptoms left leg with pain with position ,motion testing , affects jobs and ADLS thus benefit from skilled PT Rehabilitation Potential: Good - Anticipated Interventions Patient/Client Instruction: Educate patient on: Condition, Plan of Care For the Purpose of:: To decrease pain, To increase ROM, To improve muscle performance and motor function, To improve ability to perform ADL's, To improve performance and independence with ADL's, To improve ability of physical actions for home/community/work/leisure, To improve health of tissue, To decrease soft tissue restriction, To increase flexibility/ROM, To prevent re-injury Therapeutic Exercise to Include: Strength training, Body mechanics, Postural training, Flexibilty training, Gait and locomotor training, Dynamic Lumbar Stabilization, Khadar Exercises For the Purpose of:: To decrease pain, To increase ROM, To improve muscle performance and motor function, To improve ability to perform ADL's, To increase tolerance to activity/condition/position, To improve ability of physical actions for home/community/work/leisure, To improve health of tissue, To decrease soft tissue restriction, To increase flexibility/ROM, To reduce risk of recurrence, To prevent re-injury Manual Therapy Techniques to Include: Manual lymph drainage Comment: LUMBAR For the Purpose of:: To decrease pain, To increase ROM Ultrasound (thermal/non thermal): Yes For the Purpose of:: To decrease pain, To increase ROM, To improve health of tissue, To decrease soft tissue restriction Thank you for the opportunity to evaluate your patient. For Medicare and Medicare HMO plans, please review the plan of care and approve it. It will need to be FAXED BACK to us at [phone] for Medicare purposes. For Medicare only, by signing this I certify the plan of care. Please let me know if there are questions or concerns regarding this plan of care. Physician Signature: Date:
--- NOTE | 2021-07-01 12:58 | HP.PT.NRP ---
SHANDRA HOUSTON was seen in my office for initial evaluation on 06/10/21. The following Plan of Care was established for this patient: Initial Frequency: 1-2x /Week Initial Duration: 4 Weeks Patient/Client Instruction: Educate patient on: Condition, Plan of Care For the Purpose of:: To decrease pain, To increase ROM, To improve muscle performance and motor function, To improve ability to perform ADL's, To improve performance and independence with ADL's, To improve ability of physical actions for home/community/work/leisure, To improve health of tissue, To decrease soft tissue restriction, To increase flexibility/ROM, To prevent re-injury Therapeutic Exercise to Include: Strength training, Body mechanics, Postural training, Flexibilty training, Gait and locomotor training, Dynamic Lumbar Stabilization, Abdiaziz Exercises For the Purpose of:: To decrease pain, To increase ROM, To improve muscle performance and motor function, To improve ability to perform ADL's, To increase tolerance to activity/condition/position, To improve ability of physical actions for home/community/work/leisure, To improve health of tissue, To decrease soft tissue restriction, To increase flexibility/ROM, To reduce risk of recurrence, To prevent re-injury Manual Therapy Techniques to Include: Manual lymph drainage Comment: LUMBAR For the Purpose of:: To decrease pain, To increase ROM Ultrasound (thermal/non thermal): Yes For the Purpose of:: To decrease pain, To increase ROM, To improve health of tissue, To decrease soft tissue restriction This patient was last seen in our office . Pertinent comments regarding their Physical therapy will appear below: Patient was seen for PT for Initial PT evaluation for HEP At this point I will be discontinuing this patient from physical therapy. I would be happy to see this patient again in the future if found appropriate by the physician. Thank you! Cesar Diop, PT, Cert MDT, OCS Balance/Gait/Functional tests - Balance/Special Test Scores Oswestry Low Back Score: 19
== END 2021-06-10 19:00 | disposition home or self-care (01) ==
LOC: PT 13:51
PROVIDERS: PCP Family Medicine; Referring Provider Orthopaedic Surgery; Visit Provider Orthopaedic Surgery
DX: Q76.49 Other congenital malformations of spine, not associated with scoliosis (principal)
CPT/HCPCS: 97110; 97162

== ENCOUNTER → 2022-01-26 | Outpatient (CLI) | payer BC, SELFPAY ==
[2022-01-26 12:01] LABS: Absolute Lymphocyte Count 2.34 X10^3/uL (0.83-4.51); Absolute Neutrophil Count 6.1 X10^3/uL (2.0-7.7); Basophil# 0.02 X10^3/uL; Basophil% 0.2 % (0-1); Eosinophil# 0.19 X10^3/uL; Hematocrit 46.4 % (40-54); Hemoglobin 16.2 g/dL (13.0-16.5); Lymphocyte # 2.34 X10^3/ul (0.83-4.51); Lymphocyte % 24.8 % (19-41); Mean Corp Hgb Conc 34.9 g/dL (32-36); Mean Corpuscular Hgb 33.2 pg (27.0-32.0); Mean Corpuscular Volume 95.1 fL (80-94); Mean Platelet Vol. 10.8 fl (6.2-12.0); Monocyte# 0.73 X10^3/uL; Monocyte% 7.7 % (0-10); NRBC Flagged by Analyzer 0 % (0-5); Neutrophil # 6.14 X10^3/uL (2.7-7.7); Platelet Count 222 K/mm3 (150-450); RBC Distribution Width CV 11.9 % (11.6-14.6); RBC Distribution Width SD 41.6 fl (35.1-43.9); Red Blood Count 4.88 M/mm3 (4.6-6.2); White Blood Count 9.5 K/mm3 (4.4-11.0)
[2022-01-26 12:55] LABS: ALB/GLOB Ratio 1.2 RATIO (0.9-2.4); AST(SGOT) 25 U/L (15-37); Alanine Aminotransfer ALT/SGPT 44 U/L (16-61); Albumin, Serum 4.1 g/dL (3.2-5.0); Alkaline Phosphatase 147 U/L (45-117); Anion Gap 8 (5-15); BUN 13 mg/dL (7-18); BUN/Creat Ratio 12.7 RATIO (10-20); Calcium,Total 9.8 mg/dL (8.5-10.1); Chloride 104 mmol/L (98-107); Creatinine, Serum 1.02 mg/dL (0.70-1.30); EST Glomerular Filtration Rate 85 mL/min (>60); Est Glom Filt Rate - Afr Amer 102 mL/min (>60); Globulin 3.4 g/dL (2.2-4.2); Glucose 84 mg/dL (74-106); Protein, Total 7.5 g/dL (6.4-8.2); Sodium Level 141 mmol/L (136-145)
[2022-01-30 11:35] LABS: KEPPRA (LEVETIRACETAM) 10.1 ug/mL (10.0-40.0)
== END | disposition home or self-care (01) ==
LOC: MFPLAB 10:58
PROVIDERS: PCP Family Medicine; Referring Provider Family Medicine; Visit Provider Family Medicine
DX: G40.909 Epilepsy, unspecified, not intractable, without status epilepticus (principal)
CPT/HCPCS: 36415; 80053; 80177; 85025

== ENCOUNTER → 2023-06-01 | Outpatient (CLI) | payer BC, SELFPAY ==
--- NOTE | 2023-06-01 15:42 | MRI_ITS ---
MRI Abdomen w/ and w/out contrast 06/01/2023 4:13 PM COMPARISON: None CLINICAL HISTORY: abnormal liver on CTA chest TECHNIQUE: Multiplanar T1 and T2 weighted, diffusion and dynamic post-gadolinium images were obtained through the abdomen before and after administration of IV contrast. FINDINGS: Liver: The liver is cirrhotic. There are innumerable T1 hypointense/T2 hyperintense rim-enhancing masses throughout the liver with more conglomeration of lesions seen centrally which is difficult to measure. For example, there is a 3.1 x 2.6 cm mass in the hepatic dome. Gallbladder: Unremarkable Pancreas: Unremarkable Spleen: Unremarkable Adrenal Glands: Unremarkable Kidneys: Unremarkable GI Tract: Unremarkable Lymphadenopathy: Absent Ascites: Absent Bones: No suspicious lesions MRI/MRI Abd WITH and W/O Contrast IMPRESSION: Findings most concerning for liver metastases from an unknown primary versus less likely cholangiocarcinoma. Consider IR consult for ultrasound or CT guided percutaneous targeted liver biopsy. Cirrhotic liver with no evidence of arterially hyperenhancing lesions to suggest HCC. Electronically Signed: Hubert Mott MD at 17:55 EST ,
== END | disposition home or self-care (01) ==
LOC: MRI 15:40
PROVIDERS: PCP Family Medicine; Referring Provider Family Medicine; Visit Provider Family Medicine
DX: R93.2 Abnormal findings on diagnostic imaging of liver and biliary tract (principal)
CPT/HCPCS: 74183; A9575; A4216

== ENCOUNTER → 2023-06-03 | Outpatient (CLI) | payer BC, SELFPAY ==
[2023-06-03 15:36] LABS: Platelet Count 234 K/mm3 (150-450)
[2023-06-03 16:13] LABS: Partial Thromboplast Time 27.5 Seconds (24.1-36.2)
[2023-06-03 16:19] LABS: International Normalized Ratio 1.1; Prothrombin Time (Protime)PT. 14.3 SECONDS (11.7-14.9)
== END | disposition home or self-care (01) ==
LOC: MFPLAB 13:57
PROVIDERS: PCP Family Medicine; Visit Provider Family Medicine
DX: K76.9 Liver disease, unspecified (principal)
CPT/HCPCS: 36415; 85049; 85610; 85730

== ENCOUNTER → 2023-06-03 | Outpatient (CLI) | payer BC, SELFPAY ==
--- NOTE | 2023-06-03 12:57 | CT_ITS ---
STUDY: CT ABDOMEN WITH CONTRAST REASON FOR EXAM: Male, 42 years old. Liver disease RADIATION DOSAGE (If Supplied By Facility): CTDIvol = ( 10.76 ) mGy, DLP = ( 553.29 ) mGycm TECHNIQUE: Transaxial images were obtained post I.V. administration of IV 100mL Isovue-300, and without oral contrast. Sagittal and coronal images were reconstructed. Individualized dose optimization techniques were used for this CT. COMPARISON: Comparison made with prior MRI of the abdomen dated June 01, 2023. FINDINGS: The visualized lung bases are unremarkable. The visualized portions of the heart are within normal limits. Hepatomegaly. There are multiple hypodense nodules scattered throughout both lobes of the liver in keeping with the metastatic deposits. Normal gallbladder and extrahepatic biliary system. There is a benign calcified granuloma of the spleen. Normal pancreas. Normal bilateral adrenal glands. Normal right kidney. Normal left kidney. Normal visualized stomach. Normal small intestine. Normal colon. The appendix is visualized and appears normal. Normal abdominal aorta. Normal inferior vena cava. Normal retroperitoneum. Normal abdominal wall. Normal osseous structures. CT/Abdomen WITH IV Contrast IMPRESSION: Multiple apical dense nodules are seen scattered throughout both lobes of the liver in keeping with diffuse metastasis. Electronically Signed: Negro Mitchell MD at 13:51 EST ,
== END | disposition home or self-care (01) ==
LOC: CT 12:56
PROVIDERS: PCP Family Medicine; Referring Provider Family Medicine; Visit Provider Family Medicine
DX: K76.9 Liver disease, unspecified (principal)
CPT/HCPCS: 74160; Q9967

== ENCOUNTER → 2023-06-08 | Outpatient (CLI) | payer BC, SELFPAY ==
[2023-06-08] VITALS (15 sets, daily range): BP systolic 115–137; BP diastolic 76–97; PULSE 56–82; RESP 16–21; TEMP 36.3; O2SAT 93–97; BMI 26.9
--- NOTE | 2023-06-08 | IMM_PTH ---
PATIENT: SHANDRA HOUSTON LOC: CT U#:[id number] AGE/SX: 42/M ROOM: RE06/08/[address]: Sonam Wright DO : 1980 BED: DIS: 06/08/2023 SPEC #: [id number] RECD: 06/08/23 11:14 STATUS: IRASEMA MONIKA #: [id number] ANTONIETTA: 06/08/23 00:[address]: Sonam Wright DEPT: IMMUNOHISTOCHEMISTRY RECD BY: Brittney Ny Tissues: Liver, NOS Procedures: RCC (add) NAPSIN A (add) CK20 (add) CK5-6 (add) CK7 (add) CK8 (add) HEP PAR (add) TTF1 (add) Pankeratin (initial) P40 (add) PSAP (add) PHYSICIAN & INSTITUTION [place] [id number] SPECIMEN INFORMATION: Tissue Source: Liver Clinical Info: Multiple liver masses Specimen Number: [id number] CPT code: 47270, 41741 x10 METHODOLOGY: Deparaffinized sections of prefer/formalin-fixed tissue or PAP/DQ stained slides are incubated with monoclonal/polyclonal antibodies/oligonucleotide probes. Localization is made via biotin free immunoperoxidase method. Appropriate controls are performed and reacted as expected. Results on target cell population are indicated in the following table: RESULTS: ANTIBODY / CLONE RESULT AE1-3 (AE1/AE3/PCK26) positive CK7 (OV-TL12/30) positive CK8 (85byvkX96) positive CK20 (KS20.8) positive, focal TTF-1 (8G7G3/1) negative Napsin A (Rabbit Polyclonal) negative HepPar (OCh1E5) negative RCC (PN-15) negative PSAP (PASE/4LJ) negative CK5-6 (D5 & 1684) negative P40 (BC28) negative These tests were developed and their performance characteristics determined by [facility]. They may not have been cleared or approved by the U.S. Food and Drug Administration. The FDA has determined that such clearance or approval is not necessary. The above immunohistochemical/dualISH markers are ordered and reviewed by the Pathologist. INTERPRETATION: Liver, CT-guided core biopsy: Moderately differentiated adenocarcinoma. See comment. TERE:kaykay 06/09/2023 Comment: IHC profile is not definite for primary; however, it may represent, but not limited to, primary cholangiocarcinoma or metastatic from pancreas or gastrointestinal tract. Clinical correlation is necessary. Case has been reviewed in consultation with Dr. Nugent who concurs with the above diagnosis. IDC:GERA
[2023-06-08] MEDS: Midazolam 2 MG/2 ML Syringe IV (09:55)
[2023-06-08] MEDS: 0.9% Normal Saline (250mL Bag) 250 ML 15 ML IV (09:55)
[2023-06-08] MEDS: fentaNYL 100 MCG/2 ML Ampul IV (09:58)
[2023-06-08] MEDS: Lidocaine 2% (20 ml mdv) 20 ML Vial INFILT (10:15)
--- NOTE | 2023-06-08 10:30 | ASPIGT_PTH ---
PATIENT: SHANDRA HOUSTON LOC: CT U#:[id number] AGE/SX: 42/M ROOM: RE06/08/[address]: Sonam Wright DO : 1980 BED: DIS: 06/08/2023 SPEC #: [id number] RECD: 06/08/23 10:40 STATUS: IRASEMA MONIKA #: [id number] ANTONIETTA: 06/08/23 10:[address]: Sonam Wright DEPT: SURGICAL PATHOLOGY RECD BY: Shelly Sierra Tissues: Liver, NOS Procedures: FNA Specimen Adequacy Special Stain Group II Surgery Specimen Level IV Surgery Specimen Level V Imprint (control) HEADER OPERATION: Liver biopsy PRE-OP DIAGNOSIS: Multiple liver masses TISSUE SUBMITTED: Liver 18-gauge x5 MICROSCOPIC DIAGNOSIS Liver mass, CT-guided core biopsy: Moderately differentiated adenocarcinoma. See note and comment. Note: Immunohistochemistry ([id number]) supports the above diagnosis and not definite for primary site of origin, however, it may include, but not limited to, pancreas, gastrointestinal tract or cholangiocarcinoma. TERE:kaykay 06/09/2023 SJ:kaykay 06/11/2023 COMMENT The specimen is evaluated at the time of biopsy by Dr. Arreguin. Immediate Evaluation = Atypical cells highly suspicious for malignancy noted. Molecular studies on the tumor can be performed if clinically indicated. Please notify the laboratory if they are needed. Correlation with clinical, radiologic findings, laboratory findings and appropriate follow up are necessary. Case has been reviewed in consultation with Dr. Nugent who concurs with the above diagnosis. IDC:AM MICROSCOPIC DESCRIPTION Slides are reviewed. GROSS DESCRIPTION Received in fixative is one container labeled with the patient's name and designated liver. The specimen consists of multiple elongated fragments of francisco soft tissue that in aggregate measure 1.5 x 0.2 x 0.1 cm. The specimen is totally submitted in one cassette. Two touch imprints are prepared at the time of core biopsy. / TERE:kaykay 06/08/2023 TC:0 CPT: 19318, 48860 ADDENDUM ADDENDUM ADDENDUM ADDENDUM ADDENDUM ADDENDUM ADDENDUM ADDENDUM ADDENDUM ADDENDUM ADDENDUM ADDENDUM ADDENDUM ADDENDUM ADDENDUM ADDENDUM ADDENDUM ADDENDUM ADDENDUM ADDENDUM ADDENDUM ADDENDUM ADDENDUM ADDENDUM 07/12/2023 09:32 ADDENDUM 07/12/2023 09:32 ADDENDUM 07/12/2023 09:32 ADDENDUM 07/12/2023 09:32 ADDENDUM 07/12/2023 09:32 [facility] ADVANCED SOLID TUMOR NGS REPORT FROM [facility] RESULT SUMMARY: Abnormal DETECTED GENOMIC ALTERATIONS: Tier II: Variants of Potential Clinical Significance BRAF [id number] Tier III: Variants of Unknown Clinical Significance GNAQ p.([id number]) IMMUNOTHERAPY BIOMARKERS: Tumor Mutation [place]: Low (2.3 Mutations / MB) Microsatellite Instability: MSI negative (0.82%) PERTINENT NEGATIVE RESULTS: The following genes are NEGATIVE for clinically relevant mutations. Mutational hotspots and surrounding exonic regions were interrogated for DNA level point mutations and indels (fusions not assayed). AKT1, APC, ARID1A, TERI, BRCA1, BRCA2, CDH1, CDKN2A, CTNNB1, EGFR, EPCAM, ERBB2, ERBB4, FBXW7, FGFR1, FGFR2, FGFR3, GNA11, GNAS, HRAS, IDH1, IDH2, KDR, KIT, KRAS, MEN1, MET, MLH1, MSH2, MSH6, NOTCH1, NRAS, PDGFRA, PIK3CA, PMS2, POLE, PTEN, PTPN11, RB1, RET, SMAD4, SMO, STK11, TERT, TP53, TSC1, TSC2, VHL Please see complete report in e-chart or EMR
--- NOTE | 2023-06-08 10:30 | ASPIGT_PTH ---
PATIENT: SHANDRA HOUSTON LOC: CT U#:[id number] AGE/SX: 42/M ROOM: RE06/08/[address]: Sonam Wright DO : 1980 BED: DIS: 06/08/2023 SPEC #: [id number] RECD: 06/08/23 10:40 STATUS: IRASEMA MONIKA #: [id number] ANTONIETTA: 06/08/23 10:[address]: Sonam Wright DEPT: SURGICAL PATHOLOGY RECD BY: Shelly Sierra Tissues: Liver, NOS Procedures: FNA Specimen Adequacy Special Stain Group II Surgery Specimen Level IV Surgery Specimen Level V Imprint (control) HEADER OPERATION: Liver biopsy PRE-OP DIAGNOSIS: Multiple liver masses TISSUE SUBMITTED: Liver 18-gauge x5 MICROSCOPIC DIAGNOSIS Liver mass, CT-guided core biopsy: Moderately differentiated adenocarcinoma. See note and comment. Note: Immunohistochemistry ([id number]) supports the above diagnosis and not definite for primary site of origin, however, it may represent, but not limited to, primary cholangiocarcinoma or metastatic pancreas or gastrointestinal tract. TERE:kaykay 06/09/2023 COMMENT The specimen is evaluated at the time of biopsy by Dr. Arreguin. Immediate Evaluation = Atypical cells highly suspicious for malignancy noted. Molecular studies on the tumor can be performed if clinically indicated. Please notify the laboratory if they are needed. Correlation with clinical, radiologic findings, laboratory findings and appropriate follow up are necessary. Case has been reviewed in consultation with Dr. Nugent who concurs with the above diagnosis. IDC:AM MICROSCOPIC DESCRIPTION Slides are reviewed. GROSS DESCRIPTION Received in fixative is one container labeled with the patient's name and designated liver. The specimen consists of multiple elongated fragments of francisco soft tissue that in aggregate measure 1.5 x 0.2 x 0.1 cm. The specimen is totally submitted in one cassette. Two touch imprints are prepared at the time of core biopsy. / TERE:kaykay 06/08/2023 TC:0 CPT: 20818, 77001
--- NOTE | 2023-06-08 10:35 | PCM.OP.PRO ---
Procedure Report Date of Procedure: 06/08/23 Assessment & Plan Assessment/Plan (1) Liver lesion: PLAN: PROCEDURE: CT DIRECTED CORE LIVER LESION BIOPSY ORDERING PROVIDER: Dr. Sonam Wright INDICATION: Male, 42 years old. Liver lesions. PROVIDER: MOOK Campbell CONSENT: Written informed consent was obtained having explained the risks, benefits and alternatives in detail with the patient who accepted the risks and agreed to proceed. Laboratory review and clinical assessment was performed. PRE-PROCEDURE SEDATION ASSESSMENT: Current history and physical dictated by referring provider and reviewed. No clinical changes since date of exam. Patient has an ASA Class of 1. PROCEDURAL SEDATION PROTOCOL: The Drugs used were: 2 mg Versed, IV, and 50 mcg Fentanyl, IV. The sedation time was: 28 minutes, starting at 9:55 AM and terminated at 10:23 AM. The procedural sedation protocol was independently monitored by the department nurse. RADIATION DOSAGE (If Supplied By Facility): CTDIvol = 20.15 mGy, DLP = 550.93 mGycm Individualized dose optimization techniques were used for this CT. TECHNIQUE: The patient was placed in a supine position. Using CT image guidance with image documentation, a suitable location in the right lobe of the liver was identified. The skin surface was prepped and draped in a sterile fashion. 2% lidocaine was used for local anesthesia. Using an anterior approach, puncture of the liver was uneventful with an 18-gauge core needle system. 5, 18-gauge core samples were obtained, and pathology was present for specimen slide preparation and collection in formalin for further assessment. The needles was removed. An occlusive sterile dressing was applied. Patient tolerated the procedure well, and returned to the [facility] for nursing monitoring. IMPRESSION: 1. CT directed core needle biopsy of the liver lesion, using CT image guidance with image documentation as described. 2. Procedural Sedation protocol utilized with independent monitoring. Procedures Radiology Radiology CT Procedures: 27821 Biopsy Liver
== END | disposition home or self-care (01) ==
LOC: CT 08:56
PROVIDERS: PCP Family Medicine; Referring Provider Family Medicine; Visit Provider Family Medicine
DX: C22.8 Malignant neoplasm of liver, primary, unspecified as to type (principal); F41.1 Generalized anxiety disorder; Z79.899 Other long term (current) drug therapy; F17.210 Nicotine dependence, cigarettes, uncomplicated
CPT/HCPCS: 47000; 77012; 88172; 88305; 88307; 88313; 88341; 88342; 99156; J7050; A4216

== ENCOUNTER 2023-07-21 07:04 | Day surgery (SDC) | payer MEDICAID, SELFPAY ==
--- OUTSIDE RECORDS SUMMARY | 2023-07-20 17:38 | XMS RPT_ITS | CCD ---
Author Name Unknown Address [address] [place] [address] Organization [facility] Care Team Providers Care Chair Name Role Phone TOSIN VANN Unavailable Unavailable MARAL VAUGHAN Unavailable Unavailable TOSIN VANN Unavailable Unavailable TOSIN VANN Unavailable Unavailable CHALO RICHARD Unavailable Unavailable MARISSA ANDERSON Unavailable Unavailable Unavailable Primary Care Provider UnavailMaral Gomes DO Primary Care Provider Unavailable Primary Care Provider Unavailabl e PROVIDER, UNKNOWN Attending Unavailable PROVIDER, UNKNOWN Admitting Unavailable SHLOMO NEVES Attending Unavailable PROVIDER, UNKNOWN Admitting Unavailable Allergies Allergy Classification Reported Allergen(s) Allergy Type Date of Onset Reaction(s) Facility (2 sources) Carisoprodol Drug Allergy 1 Other: See Comments [facility] Work Phone: [phone] 2 (2 sources) cyclobenzaprine Drug Allergy 1 Other: See Comments [facility] Work Phone: [phone] 2 (2 sources) Orphenadrine Drug Allergy 1 Other: See Comments [facility] Work Phone: [phone] 2 Medications Current Medications Medication Drug Class(es) Dates Sig (Normalized) Sig (Original) busPIRone hydrochloride 30 mg oral tablet (3 sources) Start: 11-18-2009 take 1 tablet by mouth twice daily busPIRone (BUSPAR) 30 MG tablet Take 1 Tab by mouth 2 times daily. 180 3 11/18/2009 Active Completed/Discontinued Medications Medication Drug Class(es) Dates Sig (Normalized) Sig (Original) ARIPiprazole 2 mg oral tablet (2 sources) Atypical Antipsychotic take 1 tablet by mouth once daily ARIPiprazole (ABILIFY) 2 mg tablet Take 2 mg by mouth once daily. 0 Active Problems Active Problems Problem Classification Problem Date Documented Date Episodic/Chronic Cardiac dysrhythmias (1 source) Bradycardia; Translations: [Bradycardia, unspecified] 04-28-2023 Episodic Conduction disorders (1 source) Right bundle branch block; Translations: [Unspecified right bundle-branch block] 04-28-2023 Chronic Epilepsy; convulsions (2 sources) Partial epilepsy with impairment of consciousness; Translations: [Localization-related (focal) (partial) symptomatic epilepsy and epileptic syndromes with complex partial seizures, not intractable, without status epilepticus] Onset: 12-28-2003 03-25-2023 Chronic Nonspecific chest pain (1 source) Chest pain; Translations: [Chest pain, unspecified] 04-28-2023 Episodic Other screening for suspected conditions (not mental disorders or infectious disease) (1 source) Electrocardiogram abnormal; Translations: [Abnormal electrocardiogram [ECG] [EKG]] 04-28-2023 Episodic Past or Other Problems Problem Classification Problem Date Documented Da te Episodic/Chronic Intracranial injury (1 source) Intracranial injury; Translations: [Intracranial injury of other and unspecified nature, without mention of open intracranial wound, unspecified state of consciousness] Onset: 12-28-2003 03-24-2023 Episodic Other aftercare (1 source) Patient encounter status; Translations: [Other alf (current) drug therapy] Onset: 08-04-2006 03-24-2023 Episodic Results Test Name Value Interpretation Reference Range Facil ity Vital Signs Date Time Vital Sign Value Performing Clinician Reyna richmond 04-28-2023 11:05-0500 Heart rate 52 /min Shlomo Neves MD Work Phone: [facility] 04-28-2023 11:00-0500 Diastolic blood pressure 89 mm[Hg] Shlomo Neves MD Work Phone: [facility] 04-28-2023 11:00-0500 Respiratory rate 18 /min Shlomo Neves MD Work Phone: [facility] 04-28-2023 11:00-0500 SaO2% (BldA) [Mass fraction] 97 % Shlomo Neves MD Work Phone: [facility] 04-28-2023 11:00-0500 Systolic blood pressure 134 mm[Hg] Shlomo Neves MD Work Phone: [facility] 04-28-2023 09:02-0500 Heart rate 77 /min Shlomo Neves MD Work Phone: [facility] 04-28-2023 08:16-0500 Body temperature 98.1 [degF] Shlomo Neves MD Work Phone: [facility] 04-28-2023 08:16-0500 Body weight 90.72 kg Shlomo Neves MD Work Phone: [facility] Encounters Encounter Date Encounter Type Care Provider Facility Start: 04-28-2023 End: 04-28-2023 Emergency department patient visit SHLOMO NEVES Facility:[facility] Start: 04-28-2023 End: 04-28-2023 Emergency department patient visit Shlomo Neves MD Work Phone: [facility] Emergency Department Procedures Date Procedure Procedure Detail Performing Clinician Start: 04-28-2023 Ecg routine ecg w/le ast 12 lds trcg only w/o i&r Shlomo Neves MD Work Phone: Start: 04-28-2023 Assay of troponin quantitative Shlomo Neves MD Work Phone: Start: 04-28-2023 Ct angiography chest w/contrast/noncontrast Shlomo Neves MD Work Phone: Start: 04-28-2023 Radiologic exam ches t 2 views Shlomo Neves MD Work Phone: Start: 04-28-2023 End: 04-28-2023 Fibrin dgradj products d-dimer qual/semiquan Shlomo Neves MD Work Phone: Start: 04-28-2023 EXTRA TUBE Shlomo amaya MD Work Phone: Start: 04-28-2023 LIGHT BLUE TOP TUBE, BLOOD Shlomo Neves MD Work Phone: Start: 04-28-2023 Ecg routine ecg w/le ast 12 lds trcg only w/o i&r Shlomo Neves MD Work Phone: Start: 09-20-2020 Colonoscopy Neurology Provider Start: 08-15-2020 PT ED PATIENT INFORMATION Lacey Carter Work Phone: Plan of Treatment Date Care Activity Detail Author Start: 09-20-2030 Colonoscopy COLONOSCOPY [facility] Start: 09-20-2030 COLORECTAL CANCER SCREENING COLORECTAL CANCER SCREENING [facility] Start: 2028 Shingles (RZV) Vaccine (1 of 2) Shingles (RZV) Vaccine (1 of 2) [facility] Start: 10-12-2023 FECAL OCCULT BLOOD FECAL OCCULT BLOOD [facility] Start: 02-12-2023 Influenza vaccination [facility] Start: 06-14-2022 DEPRESSION ASSESSMENT DEPRESSION ASSESSMENT [facility] Start: 02-13-2020 Influenza vaccination INFLUENZA (#1) [facility] Start: 2013 Lipid panel Cholesterol [facility] Start: 2013 LIPID SCREEN LIPID SCREEN [facility] Start: 2005 HPV Vaccine (optional start 27-45 years) HPV Vaccine (optional start 27-45 years) [facility] Start: 1997 Urine microalbumin profile DTAP,TDAP,TD (1 - Tdap) [facility] Start: 1996 HEPATITIS C SCREENING HEPATITIS C SCREENING [facility] Start: 1996 Hepatitis C screening Hepatitis C Antibody [facility] Start: 1996 HIV SCREENING HIV SCREENING [facility] Start: 1996 Tetanus + diphtheria + acellular pertussis vaccine (product) [facility] Start: 1993 HIV screening HIV Test [facility] Start: 1990 Adult depression screening assessment DEPRESSION SCREENING [facility] Start: 1984 Pneumococcal vaccination Pneumococcal Vaccine(s) (1 - PCV) [facility] Start: 04-12-1979 COVID-19 VACCINE (#1) COVID-19 VACCINE (#1) [facility] End: 04-28-2023 Basic metabolic 2000 panel - Serum or Plasma BASIC METABOLIC PANEL Lab STAT One time for 1 Occurrences starting 04/28/2023 until 04/28/2023 [facility] Work Phone: Payers Date Payer Category Payer [facility] [id number] 2020 Unknown MMO MMO [employer] [id number] 2020-Present Indemnity [id number] 2019 Unknown [id number] 2017 Unknown [id number] 2013 [facility] [id number] 2008 Unknown [facility] [id number] 2008-Present [employer] [id number] 2000 Unknown [id number] 1998 Unknown [id number] 1978 Unknown [id number] 1978 Unknown [id number] 1978 Unknown [id number] Social History Date Type Detail Facility Tobacco smoking status [facility] Unknown if ever smoked [facility] Start: 1978 Sex Assigned At Not on file [facility] Start: 12-26-2020 Tobacco smoking status NYIS Ex-smoker [facility] Work Phone: History of tobacco use Current smoker [facility] Work Phone: Start: 12-26-2020 Tobacco use and exposure Former smokeless tobacco user [facility] Work Phone: History of tobacco use Chews Tobacco [facility] Work Phone: Start: 06-24-2011 End: 12-26-2020 Alcohol intake Current drinker of alcohol (finding) [facility] Start: 09-03-2020 End: 12-26-2020 History of Social function [facility] Start: 09-03-2020 End: 12-26-2020 Tobacco use panel [facility] National Score (1-100), lower number is lower risk Not on file [facility] Start: 09-03-2020 Alcohol Comment rarely [facility] Start: 12-24-2010 Tobacco smoking status NHIS Smokes tobacco daily [facility] Work Phone: History of tobacco use Cigarette Smoker [facility] Start: 12-24-2010 Tobacco use and exposure User of smokeless tobacco [facility] Hospital Discharge instructions 04-28-2023 Discharge InstructionsAttachments Note Date & Type Note Facility 04-28-2023 Hospital Discharg e instructions Shlomo Neves MD - 04/28/2023 11:38 AM EST Tylenol or ibuprofen for the pain. You will need follow-up imaging of your liver as discussed. Radiology is recommending a nonemergent outpatient MRI. Discuss with your physician to schedule. Return if any problems Procedures done during this visit: None The following attachments cannot be sent through Care Everywhere.Chest Pain That Is Not Caused by the Heart Discharge Instructions (Uruguayan)Incidental Findings (Uruguayan)documented in this encounter 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 42-year-old male complains of sharp left-sided chest pain that shoots into his ribs some associated shortness of breath he noticed upon awakening at 5 a[address] He drove to work but decided to come and get checked out. No history of heart disease or venous thromboembolism. No fevers chills or cough. Chews tobacco but does not smoke. One grandfather with a history of heart disease. 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 Chest symptoms/complaints Pain location: L chest Pain quality: sharp Pain radiates to: Does not radiate Pain severity: Moderate Onset quality: Gradual Duration: 4 hours Timing: Constant Progression: Waxing and waning Chronicity: New Context: not trauma Relieved by: Nothing Worsened by: Deep breathing Ineffective treatments: None tried Associated symptoms: shortness of breath Associated symptoms: no abdominal pain, no altered mental status, no back pain, no cough, no diaphoresis, no dizziness, no fever, no headache, no lower extremity edema, no syncope and no vomiting REVIEW OF SYSTEMS Review of Systems Constitutional: Negative for diaphoresis and fever. HENT: Negative for facial swelling. Eyes: Negative for redness. Respiratory: Positive for shortness of breath. Negative for cough. Cardiovascular: Positive for chest pain. Negative for syncope. Gastrointestinal: Negative for abdominal pain and vomiting. Genitourinary: Negative for flank pain. Musculoskeletal: Negative for back pain. Skin: Negative for rash. Neurological: Negative for dizziness, speech difficulty and headaches. Psychiatric/Behavioral: Negative for confusion. 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 Constitutional: General: He is not in acute distress. Appearance: He is not ill-appearing, toxic-appearing or diaphoretic. HENT: Head: Normocephalic and atraumatic. Eyes: Extraocular Movements: Extraocular movements intact. Pupils: Pupils are equal, round, and reactive to light. Neck: Vascular: No JVD. Cardiovascular: Rate and Rhythm: Normal rate and regular rhythm. Heart sounds: Normal heart sounds. No murmur heard. Pulmonary: Effort: Pulmonary effort is normal. No tachypnea or respiratory distress. Breath sounds: Normal breath sounds. No decreased breath sounds. Abdominal: Palpations: Abdomen is soft. There is no mass. Tenderness: There is no abdominal tenderness. Musculoskeletal: General: Normal range of motion. Cervical back: Normal range of motion. Right lower leg: No tenderness. No edema. Left lower leg: No tenderness. No edema. Skin: General: Skin is warm and dry. Capillary Refill: Capillary refill takes less than 2 seconds. Neurological: General: No focal deficit present. Mental Status: He is alert and oriented to person, place, and time. Psychiatric: Mood and Affect: Mood normal. Behavior: Behavior normal. MEDICAL DECISION MAKING and ED COURSE EMERGENCY DEPARTMENT EKG INTERPRETATION Rhythm: Normal sinus rhythm Rate: 77 NORMAL Incomplete right bundle-branch block No atrial or ventricular hypertrophy T wave flattening V3, V4, V5, and V6 Comparison to prior: 01/29/96 Impression: EKG shows normal sinus rhythm nonspecific STT wave changes Personally reviewed and interpretated by Shlomo Neves MD Course: Toradol 15 mg IV ED Course as of 04/28/23 1140 Wed Apr 28, 2023 0845 Mildly elevated D-dimer. Chest CT ordered. Hemoglobin slightly elevated at 16.7 as is WBC at 11.7. [GE] 0910 Troponin normal [GE] 0941 IMPRESSION: 1. Negative for acute pulmonary embolus. 2. Nodular hepatic contour consistent with cirrhosis with numerous hepatic hypodensities throughout the imaged liver, not well evaluated by this exam. Considerations include metastatic disease or multifocal hepatocellular carcinoma given cirrhosis. Further evaluation with nonemergent contrast-enhanced liver MRI is recommended. 3. Borderline splenomegaly may reflect portal venous hypertension. 4. Additional findings as described. [GE] 0947 Pain improved after the Toradol. Discussed CT results. No PE. Patient states that he does drink beer. Discussed the need to have follow-up imaging of his liver upon discharge [GE] 1020 Repeat EKG shows sinus bradycardia at a rate of 52 nonspecific STT wave changes, no significant change when compared to the 1st EKG. Delta troponin pending [GE] 1133 Repeat troponin normal. Discussed results with the patient. Patient appears stable for discharge. This does not appear to be ACS or any other acute cardiac or pulmonary cause of chest pain. Discussed the findings in his liver and the need for outpatient follow-up [GE] 1137 Impression is 1 of either viral related pleurisy or musculoskeletal pain [GE] ED Course User Index [GE] Shlomo Neves MD Assessment & Plan: As above IMPRESSION AND DISPOSITION Clinical Impression Diagnosis Comment Chest pain, unspecified type [R07.9] Disposition: Home The patient has received a medical screening examination and within reasonable clinical confidence an emergency medical condition was identified and has been stabilized. Counseling: Spoke with the patient and discussed today s findings, in addition to providing specific details for the plan of care and expected course. They were given the opportunity to ask questions. Discussed return precautions and importance of follow-up. Advised to follow-up with PCP. Advised to return to the ED for changing or worsening symptoms, new symptoms, complaint specific precautions, and precautions listed on the discharge paperwork. 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 42-year-old male complains of sharp left-sided chest pain that shoots into his ribs some associated shortness of breath he noticed upon awakening at 5 [address] He drove to work but decided to come and get checked out. No history of heart disease or venous thromboembolism. No fevers chills or cough. Chews tobacco but does not smoke. One grandfather with a history of heart disease. 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 Chest symptoms/complaints Pain location: L chest Pain quality: sharp Pain radiates to: Does not radiate Pain severity: Moderate Onset quality: Gradual Duration: 4 hours Timing: Constant Progression: Waxing and waning Chronicity: New Context: not trauma Relieved by: Nothing Worsened by: Deep breathing Ineffective treatments: None tried Associated symptoms: shortness of breath Associated symptoms: no abdominal pain, no altered mental status, no back pain, no cough, no diaphoresis, no dizziness, no fever, no headache, no lower extremity edema, no syncope and no vomiting REVIEW OF SYSTEMS Review of Systems Constitutional: Negative for diaphoresis and fever. HENT: Negative for facial swelling. Eyes: Negative for redness. Respiratory: Positive for shortness of breath. Negative for cough. Cardiovascular: Positive for chest pain. Negative for syncope. Gastrointestinal: Negative for abdominal pain and vomiting. Genitourinary: Negative for flank pain. Musculoskeletal: Negative for back pain. Skin: Negative for rash. Neurological: Negative for dizziness, speech difficulty and headaches. Psychiatric/Behavioral: Negative for confusion. 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 Constitutional: General: He is not in acute distress. Appearance: He is not ill-appearing, toxic-appearing or diaphoretic. HENT: Head: Normocephalic and atraumatic. Eyes: Extraocular Movements: Extraocular movements intact. Pupils: Pupils are equal, round, and reactive to light. Neck: Vascular: No JVD. Cardiovascular: Rate and Rhythm: Normal rate and regular rhythm. Heart sounds: Normal heart sounds. No murmur heard. Pulmonary: Effort: Pulmonary effort is normal. No tachypnea or respiratory distress. Breath sounds: Normal breath sounds. No decreased breath sounds. Abdominal: Palpations: Abdomen is soft. There is no mass. Tenderness: There is no abdominal tenderness. Musculoskeletal: General: Normal range of motion. Cervical back: Normal range of motion. Right lower leg: No tenderness. No edema. Left lower leg: No tenderness. No edema. Skin: General: Skin is warm and dry. Capillary Refill: Capillary refill takes less than 2 seconds. Neurological: General: No focal deficit present. Mental Status: He is alert and oriented to person, place, and time. Psychiatric: Mood and Affect: Mood normal. Behavior: Behavior normal. MEDICAL DECISION MAKING and ED COURSE EMERGENCY DEPARTMENT EKG INTERPRETATION Rhythm: Normal sinus rhythm Rate: 77 NORMAL Incomplete right bundle-branch block No atrial or ventricular hypertrophy T wave flattening V3, V4, V5, and V6 Comparison to prior: 01/29/96 Impression: EKG shows normal sinus rhythm nonspecific STT wave changes Personally reviewed and interpretated by Shlomo Neves MD Course: Toradol 15 mg IV ED Course as of 04/28/23 1140 WedApr 28, 2023 0845 Mildly elevated D-dimer. Chest CT ordered. Hemoglobin slightly elevated at 16.7 as is WBC at 11.7. [GE] 0910 Troponin normal [GE] 0941 IMPRESSION: 1. Negative for acute pulmonary embolus. 2. Nodular hepatic contour consistent with cirrhosis with numerous hepatic hypodensities throughout the imaged liver, not well evaluated by this exam. Considerations include metastatic disease or multifocal hepatocellular carcinoma given cirrhosis. Further evaluation with nonemergent contrast-enhanced liver MRI is recommended. 3. Borderline splenomegaly may reflect portal venous hypertension. 4. Additional findings as described. [GE] 0947 Pain improved after the Toradol. Discussed CT results. No PE. Patient states that he does drink beer. Discussed the need to have follow-up imaging of his liver upon discharge [GE] 1020 Repeat EKG shows sinus bradycardia at a rate of 52 nonspecific STT wave changes, no significant change when compared to the 1st EKG. Delta troponin pending [GE] 1133 Repeat troponin normal. Discussed results with the patient. Patient appears stable for discharge. This does not appear to be ACS or any other acute cardiac or pulmonary cause of chest pain. Discussed the findings in his liver and the need for outpatient follow-up [GE] 1137 Impression is 1 of either viral related pleurisy or musculoskeletal pain [GE] ED Course User Index [GE] Shlomo Neves MD Assessment & Plan: As above IMPRESSION AND DISPOSITION Clinical Impression Diagnosis Comment Chest pain, unspecified type [R07.9] Disposition: Home The patient has received a medical screening examination and within reasonable clinical confidence an emergency medical condition was identified and has been stabilized. Counseling: Spoke with the patient and discussed today s findings, in addition to providing specific details for the plan of care and expected course. They were given the opportunity to ask questions. Discussed return precautions and importance of follow-up. Advised to follow-up with PCP. Advised to return to the ED for changing or worsening symptoms, new symptoms, complaint specific precautions, and precautions listed on the discharge paperwork. Shlomo Neves MD [facility] Tele[facility] En[facility] - Navya Artis - 01/19/2023 11:06 AM EDT Note Date & Type Note Facility 01-19-2023 Miscellaneous Notes Formattin g of this note might be different from the original. Images from the original note were not included. documented in this encounter [facility] Note 01-19-2023 Telephone Encounter - Sera Fontenot - 01/19/2023 10:29 AM EDTTelephone Encounter - Sera Fontenot - 01/19/2023 10:10 AM EDT Note Date & Type Note Facility 01-19-2023 Miscellaneous Notes Formattin g of this note might be different from the original. Left a [facility] message with the [facility]. [phone] Requested they call the patient to schedule an appointment. Outside referral on file. Left the patient a voice message to call the office so we can schedule an appointment. Referral received at [place] office from [facility] for patient to be seen by Dr. Tomlin for Epilepsy. Referral scanned to patients chart. This staff will route to NINA Merritt for scheduling. YONATHAN Gomez documented in this encounter [facility] Evaluation note Note Date & Type Note Facility documented in this encounter [facility] Summary Purpose Family History No Family History Records FoundNo Family History Records FoundNo Family History Records FoundNo Family History Records FoundNo Family History Records Found Advance Directives No Advanced Directives Records FoundLatest Code Status on File Code Status Date Activated Date Inactivated Comments None 05/16/2003 8:46 AM 05/16/2003 8:46 AM Additional Source Comments (unrecognized sect ion and content) No Status Records FoundNo Status Records FoundNo Status Records FoundNo Status Records FoundNo Status Records Found INFORMATION SOURCE (unrecogn ized section and content) DATE CREATED AUTHOR AUTHOR'S ORGANIZ ATION 10/01/2020 [facility] DATE CREATED AUTHOR AUTHOR'S ORGANIZ ATION 06/06/2021 [facility] DATE CREATED AUTHOR AUTHOR'S ORGANIZ ATION 02/26/2023 [facility] DATE CREATED AUTHOR AUTHOR'S ORGANIZ ATION 05/05/2023 [facility] Source Comments (unrecognize d section and content) In the event this informatio n is protected by the Federal Confidentiality of Alcohol and Drug Abuse Patient Records regulations: The Federal rules restrict any use of the information to criminally investigate or prosecute any alcohol or drug abuse patient.[facility] the event this information is protected by the Federal Confidentiality of Alcohol and Drug Abuse Patient Records regulations: The Federal rules restrict any use of the information to criminally investigate or prosecute any alcohol or drug abuse patient.[facility] the event this information is protected by the Federal Confidentiality of Alcohol and Drug Abuse Patient Records regulations: The Federal rules restrict any use of the information to criminally investigate or prosecute any alcohol or drug abuse patient.[facility] Reason for Visit (unrecogniz ed section and content) Reason Comments Future Appointment [place], [place], Any Reason Comments Chest symptoms/complaints C/O LEFT SIDED CP STARTED THIS AM AT APPROX 0430 AND WOKE PT UP, DENIES N/V, + DB, DENIES DIAPHORESIS, DENIES HEART PROBLEMS, PT STATED DRINKS DAILY BUT NOT DRANK SINCE YESTERDAY AT 1800 Care Teams (unrecognized sec tion and content) Chair Relationship Specialty Start Date End Date Maral Ramirez DO PCP - General Family Medicine 09/03/20 Scheduled Active and Recently Administ ered Medications (unrecognized section and content) FOR RECORDS PERTAINING TO PATIENTS WHO ARE OR HAVE BEEN ENROLLED IN A CHEMICAL DEPENDENCY/SUBSTANCEABUSE PROGRAM, SOME INFORMATION MAY BE OMITTED. This clinical summary was aggregated from multiple sources. Caution should be exercised in using it in the provision of clinical care. This summary normalizes information from multiple sources, and as a consequence, information in this document may materially change the coding, format and clinical context of patient data. In addition, data may be omitted in some cases. CLINICAL DECISIONS SHOULD BE BASED ON THE PRIMARY CLINICAL RECORDS. [employer] provides no warranty or guarantee of the accuracy or completeness of information in this document.
--- OUTSIDE RECORDS SUMMARY | 2023-07-21 07:07 | XMS RPT_ITS | CCD ---
Author Name Unknown Address [address] [place] [address] Organization [facility] Care Team Providers Care Welder Helper Name Role Phone TOSIN VANN Unavailable Unavailable [...] Carisoprodol Drug Allergy 1 Other: See Comments [facility] Work Phone: [phone] 2 (2 sources) cyclobenzaprine Drug Allergy 1 Other: See Comments [facility] Work Phone: [phone] 2 (2 sources) Orphenadrine Drug Allergy 1 Other: See Comments [facility] Work Phone: [phone] 2 Medications Current Medications Medication Drug Class(es) [...] (1 source) Patient encounter status; Translations: [Other fdc (current) drug therapy] Onset: 08-04-2006 03-24-2023 Episodic Results Test Name Value Interpretation Reference Range Facil ity Vital Signs Date Time Vital Sign Value Performing Clinician Reyna richmond 04-28-2023 11:05-0500 Heart rate 52 /min Shlomo Neves MD Work Phone: [facility] 04-28-2023 11:00-0500 Diastolic blood pressure 89 mm[Hg] Shlomo Neves MD Work Phone: [facility] 04-28-2023 11:00-0500 Respiratory rate 18 /min Shlomo Neves MD Work Phone: [facility] 04-28-2023 11:00-0500 SaO2% (BldA) [Mass fraction] 97 % Shlomo Neves MD Work Phone: [facility] 04-28-2023 11:00-0500 Systolic blood pressure 134 mm[Hg] Shlomo Neves MD Work Phone: [facility] 04-28-2023 09:02-0500 Heart rate 77 /min Shlomo Neves MD Work Phone: [facility] 04-28-2023 08:16-0500 Body temperature 98.1 [degF] Shlomo Neves MD Work Phone: [facility] 04-28-2023 08:16-0500 Body weight 90.72 kg Shlomo Neves MD Work Phone: [facility] Encounters Encounter Date Encounter Type Care Provider Facility Start: 04-28-2023 End: 04-28-2023 Emergency department patient visit SHLOMO NEVES Facility:[facility] Start: 04-28-2023 End: 04-28-2023 Emergency department patient visit Shlomo Neves MD Work Phone: [facility] Emergency Department Procedures Date Procedure Procedure Detail Performing Clinician Start: 04-28-2023 Ecg routine ecg w/le ast 12 lds trcg only w/o i&r Shlomo Neves MD Work Phone: Start: 04-28-2023 Assay of troponin quantitative Shlomo Neves MD Work Phone: Start: 04-28-2023 Ct angiography chest w/contrast/noncontrast Shlomo Neves MD Work Phone: Start: 04-28-2023 Radiologic exam ches t 2 views Shlomo eNves MD Work Phone: Start: 04-28-2023 End: 04-28-2023 [...] Activity Detail Author Start: 09-20-2030 Colonoscopy COLONOSCOPY [facility] Start: 09-20-2030 COLORECTAL CANCER SCREENING COLORECTAL CANCER SCREENING [facility] Start: 2028 Shingles (RZV) Vaccine (1 of 2) Shingles (RZV) Vaccine (1 of 2) [facility] Start: 10-12-2023 FECAL OCCULT BLOOD FECAL OCCULT BLOOD [facility] Start: 02-12-2023 Influenza vaccination [facility] Start: 06-14-2022 DEPRESSION ASSESSMENT DEPRESSION ASSESSMENT [facility] Start: 02-13-2020 Influenza vaccination INFLUENZA (#1) [facility] Start: 2013 Lipid panel Cholesterol [facility] Start: 2013 LIPID SCREEN LIPID SCREEN [facility] Start: 2005 HPV Vaccine (optional start 27-45 years) HPV Vaccine (optional start 27-45 years) [facility] Start: 1997 Urine microalbumin profile DTAP,TDAP,TD (1 - Tdap) [facility] Start: 1996 HEPATITIS C SCREENING HEPATITIS C SCREENING [facility] Start: 1996 Hepatitis C screening Hepatitis C Antibody [facility] Start: 1996 HIV SCREENING HIV SCREENING [facility] Start: 1996 Tetanus + diphtheria + acellular pertussis vaccine (product) [facility] Start: 1993 HIV screening HIV Test [facility] Start: 1990 Adult depression screening assessment DEPRESSION SCREENING [facility] Start: 1984 Pneumococcal vaccination Pneumococcal Vaccine(s) (1 - PCV) [facility] Start: 04-12-1979 COVID-19 VACCINE (#1) COVID-19 VACCINE (#1) [facility] End: 04-28-2023 Basic metabolic 2000 panel - Serum or Plasma BASIC METABOLIC PANEL Lab STAT One time for 1 Occurrences starting 04/28/2023 until 04/28/2023 [facility] Work Phone: Payers Date Payer Category Payer [facility] [id number] 2020 Unknown MMO MMO [employer]PER[employer] [id number] 2020-Present Indemnity [id number] 2019 Unknown [id number] 2017 Unknown [id number] 2013 [facility] [id number] 2008 Unknown [facility] ESTEPHANIA O [id number] 2008-Present [employer]CO [id number] 2000 Unknown [id number] 1998 Unknown [id number] 1978 Unknown [id number] 1978 Unknown [id number] 1978 Unknown [id number] Social History Date Type Detail Facility Tobacco smoking status [facility] Unknown if ever smoked [facility] Start: 1978 Sex Assigned At Not on file [facility] Start: 12-26-2020 Tobacco smoking status IAIS Ex-smoker [facility] Work Phone: History of tobacco use Current smoker [facility] Work Phone: Start: 12-26-2020 Tobacco use and exposure Former smokeless tobacco user [facility] Work Phone: History of tobacco use Chews Tobacco [facility] Work Phone: Start: 06-24-2011 End: 12-26-2020 Alcohol intake Current drinker of alcohol (finding) [facility] Start: 09-03-2020 End: 12-26-2020 History of Social function [facility] Start: 09-03-2020 End: 12-26-2020 Tobacco use panel [facility] National Score (1-100), lower number is lower risk Not on file [facility] Start: 09-03-2020 Alcohol Comment rarely [facility] Start: 12-24-2010 Tobacco smoking status NHIS Smokes tobacco daily [facility] Work Phone: History of tobacco use Cigarette Smoker [facility] Start: 12-24-2010 Tobacco use and exposure User of smokeless tobacco [facility] Discharge instructions 04-28-2023 Discharge InstructionsAttachments Note [...] Not Caused by the Heart Discharge Instructions (Palauan)Incidental Findings (Palauan)documented in this encounter [facility] Physician Emergency department Note 04-28-2023 Shlomo Neves [...] BUT NOT DRANK SINCE YESTERDAY AT 1800 Double Cut Off Saw Operator: not needed - patient preferred language is Palauan. 42-year-old male complains of sharp left-sided chest [...] history of heart disease. [facility] instructional technology facilitator used: No Chest symptoms/complaints Pain location: L [...] on the discharge paperwork. Shlomo Neves MD [facility] Emergency department Note 04-28-2023 Shlomo Neves [...] BUT NOT DRANK SINCE YESTERDAY AT 1800 Double Cut Off Saw Operator: not needed - patient preferred language is Palauan. 42-year-old male complains of sharp left-sided chest [...] of heart disease. History provided by: PatientLanguage instructional technology facilitator used: No Chest symptoms/complaints Pain location: L [...] Shlomo Neves MD [facility] Note 01-19-2023 Telephone Encounter - Navya Artis - 01/19/2023 11:06 AM EDT Note Date & Type Note Facility 01-19-2023 Miscellaneous Notes Formattin g of this note might be different from the original. Images from the original note were not included. documented in this encounter [facility] Note 01-19-2023 Telephone Encounter - Sera Fontenot - 01/19/2023 10:29 AM EDTTelephone Encounter - Sera Fontenot - 01/19/2023 10:10 AM EDT Note Date & Type Note Facility 01-19-2023 Miscellaneous Notes Formattin g of this note might be different from the original. Left a voice message with the [facility]psy [facility]. [phone] Requested they call the patient to schedule an appointment. Outside referral on file. Left the patient a voice message to call the office so we can schedule an appointment. Referral received at [place] office from [facility] for patient to be seen by Dr. Tomlin for Epilepsy. Referral scanned to patients chart. This staff will route to NINA Merritt for scheduling. YONATHAN Gomez documented in this encounter [facility] Evaluation note Note Date & Type Note Facility documented in this encounter [facility] Summary Purpose Family History No Family History [...] DATE CREATED AUTHOR AUTHOR'S ORGANIZ ATION 10/01/2020 [facility] DATE CREATED AUTHOR AUTHOR'S ORGANIZ ATION 06/06/2021 [facility] DATE CREATED AUTHOR AUTHOR'S ORGANIZ ATION 02/26/2023 [facility] DATE CREATED AUTHOR AUTHOR'S ORGANIZ ATION 05/05/2023 [facility] Source Comments (unrecognize d section and content) In the event this informatio n is protected by the Federal Confidentiality of Alcohol and Drug Abuse Patient Records regulations: The Federal rules restrict any use of the information to criminally investigate or prosecute any alcohol or drug abuse [facility] the event this information is protected by the Federal Confidentiality of Alcohol and Drug Abuse Patient Records regulations: The Federal rules restrict any use of the information to criminally investigate or prosecute any alcohol or drug abuse patient.[facility] the event this information is protected by the Federal Confidentiality of Alcohol and Drug Abuse Patient Records regulations: The Federal rules restrict any use of the information to criminally investigate or prosecute any alcohol or drug abuse patient.[facility] Reason for Visit (unrecogniz ed section and content) Reason Comments Future Appointment [place], [place], Any Reason Comments Chest symptoms/complaints C/O LEFT SIDED CP STARTED THIS AM AT APPROX 0430 AND WOKE PT UP, DENIES N/V, + DB, DENIES DIAPHORESIS, DENIES HEART PROBLEMS, PT STATED DRINKS DAILY BUT NOT DRANK SINCE YESTERDAY AT 1800 Care Teams (unrecognized sec tion and content) Welder Helper Relationship Specialty Start Date End Date Maral [...] BE BASED ON THE PRIMARY CLINICAL RECORDS. [employer] provides no warranty or guarantee of the accuracy or completeness of information in this document.
[2023-07-21 07:41] VITALS: BP 108/65; PULSE 67; RESP 16; TEMP 36.4; O2SAT 97; BMI 25.6
[2023-07-21] MEDS: Lactated Ringers 1,000 ML 15 ML IV (07:44)
--- NOTE | 2023-07-21 07:57 | PCM.HP.BLA ---
History and Physical Date of Admission: 07/21/23 Intake Vital Signs 07/13/2409:55 07/14/2414:31 07/16/2412:02 Height 5 ft 10.5 in 5 ft 10.5 in Weight: 181 lb 7.999 oz 183 lb 2 oz BMI 25.7 BP 118/75 98/63 Blood Pressure Location Lt brachial Rt brachial Position Sitting Sitting Respiration 18 17 Pulse 85 75 Pulse Source Monitor Monitor Temp 98 F 98.1 F Temp Source Temporal Pulse Oximetry (%) 98 99 Oxygen Delivery Method room air room air Intake Visit Reasons: PORT PLACEMENT Chief Complaint: port placement Qa Automation Developer Required: No Is patient in pain?: Yes Pain scale (1-10): 4 Allergies carisoprodol [From Soma] Allergy (Verified 07/16/23 13:03) seizurecyclobenzaprine [From Flexeril] Allergy (Verified 07/16/23 13:03) seizureorphenadrine [From Norflex] Allergy (Verified 07/16/23 13:03) seizureMUSCLE RELAXANTS Allergy (Uncoded 07/16/23 13:03) SEIZURE LIKE ACTIVITY Medications buspirone 30 mg tablet 30 mg PO BID 12/24/14 [History Confirmed 07/16/23] levetiracetam 500 mg tablet 500 mg PO QHS 12/24/14 [History Confirmed 07/16/23] citalopram 20 mg tablet 40 mg PO QDAY 05/31/17 [History Confirmed 07/16/23] carbamazepine 200 mg tablet 200 mg PO 5X/DAY 10/25/18 [History Confirmed 07/16/23] aripiprazole 5 mg tablet 10 mg PO DAILY 12/19/20 [History Confirmed 07/16/23] levetiracetam 750 mg tablet (Keppra) 750 mg PO BREAKFAST 12/19/20 [History Confirmed 07/16/23] oxycodone 10 mg tablet 10 mg PO Q6H PRN 07/13/23 [History Confirmed 07/16/23] dexamethasone 4 mg tablet 8 mg (2 x 4 mg) PO .COMPLEX #60 tabs 07/14/23 [Rx Confirmed 07/16/23] lidocaine-prilocaine 2.5 %-2.5 % topical cream 1 applic topical ONCE PRN port access 30 days #30 grams 07/14/23 [Rx Confirmed 07/16/23] ondansetron 8 mg disintegrating tablet 8 mg PO Q8H PRN nausea and vomiting #30 tabs 07/14/23 [Rx Confirmed 07/16/23] PFSH Medical History Anxiety Contusion of right shoulder region Depression Encounter for education Hypercalcemia of 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 He is here for port placement for chemotherapy. He is complaining of weakness and fatigue. ROS General General: Yes weight change (loss ) and fatigue Psych Psychiatric: Yes depression Resp Respiratory: Yes shortness of breath and Yes sleep apnea Additional Details: undiagnosed sleep apnea but snores a lot Gastro Gastrointestinal: Yes abdominal pain and Yes nausea or vomiting Exam Const General: cooperative Orientation: alert and oriented x3 HENMT Head: normal to inspection Neck Neck: normal visual inspection and full ROM Chest Chest palpation & inspection: normal inspection of the chest Resp Effort & Inspection: normal respiratory effort Auscultation: clear to auscultation bilaterally Cardio Rate: regular rate Rhythm: regular rhythm GI Inspection: non-distended Palpation: soft and nontender Skin General: no rashes or lesions noted Neuro General: patient alert and patient oriented x3 Extrem General: full ROM Psych Appearance: grossly normal Mental Status: mental status grossly normal Assessment and Plan Assessment and Plan (1) Encounter for adjustment and management of vascular access device: Status: Acute Plan: I discussed right chest port placement with the patient in detail. I discussed the risks including but not limited to bleeding, infection, injury to other organs or pneumothorax, line infection or DVT. Patient understands the risks and is willing to proceed. I will place his port next week. Willard Rodas MD Pager: [facility] [address] [place] [address], [address] [place] [address] Office: I have examined the patient and the H&P has been reviewed. There are no clinical changes since date of exam.
[2023-07-21] MEDS: Cefazolin 2 GM in 0.9% Normal Saline (100mL Bag) 100 ML IV (08:11)
[2023-07-21] MEDS: Bupivacaine Mpf 0.5% 30 ML VIAL (08:26)
[2023-07-21] MEDS: Lidocaine 1% /Epi 1:100 (20ml) 20 ML Vial (08:26)
[2023-07-21 08:46] VITALS: BP 108/64; BP 108/65; PULSE 65; RESP 18; TEMP 36.2; O2SAT 93
[2023-07-21 08:50] VITALS: BP 108/65; BP 108/66; PULSE 65; RESP 12; O2SAT 92
[2023-07-21 08:55] VITALS: BP 107/67; BP 108/65; PULSE 65; RESP 12; O2SAT 94
--- NOTE | 2023-07-21 08:55 | RAD_ITS ---
STUDY: X-RAY CHEST REASON FOR EXAM: Male, 42 years old. Line placement -- in pacu TECHNIQUE: Single AP portable view of the chest. COMPARISON: Comparison is made with prior study of September 11, 2019. FINDINGS: A right-sided portacatheter is seen with the tip at the junction of the superior vena cava and right atrium. EKG electrodes are seen. There is a mild degree of increased markings at the lung bases suggestive of bibasilar atelectasis. There is no demonstrated pleural abnormality. Normal size heart. Normal mediastinum and melisa. Normal visualized pulmonary arteries. Normal visualized aortic arch and descending thoracic aorta. Normal visualized thoracic spine. Evidence of prior ORIF of a left clavicular fracture. There is no demonstrated abnormality of the visualized soft tissue structures of the upper abdomen. RAD/CXR for Line Placement IMPRESSION: The tip of the racheal catheter is at the junction of the superior vena cava and right atrium. Mild increased markings at the lung bases suggestive of atelectasis. Electronically Signed: Negro Mitchell MD at 9:12 EST ,
--- NOTE | 2023-07-21 08:55 | OP.PCM_ITS ---
Report of Operation Date of Procedure: 07/21/23 Pre-Operative Diagnosis: Need for vascular access for chemotherapy Post-Operative Diagnosis: Same Surgery/Procedure Performed:: Ultrasound and fluoroscopy guided right chest port placement utilizing right IJ Type of Anesthesia: Local MAC Estimated Blood Loss (mL): 10 Description of Procedure: After obtaining informed consent patient was brought back to the operating room MAC anesthesia was induced and the right chest and neck were prepped in normal sterile fashion. Ultrasound was used to evaluate both IJs and the right IJ was selected. Next, using a needle, the right IJ was accessed and a guidewire was passed on into the superior vena cava under fluoroscopy guidance. A small incision was made over the puncture site and the dilator introducer was placed over the guidewire. Next this was capped and the pocket was made for the port. 1% lidocaine with epinephrine was injected in the proposed port site. An incision was made with scalpel. Electrocautery was used to make a pocket under the skin and subcutaneous tissue. Hemostasis was obtained. Next, the catheter was tunneled up to the neck incision site and placed through the introducer. The peel-away introducer was removed and the position of the catheter was confirmed on fluoroscopy. Next, the catheter was trimmed and attached to the port with the locking device. Interrupted 2-0 Vicryl sutures were used to anchor the port to the chest wall and then the port was placed inside the pocket. The pocket was then flushed with saline and the port irrigated with saline. There was good blood return and the port flushed easily. Next, heparin was injected into the port. The skin was closed with subcutaneous interrupted 3-0 Vicryl sutures. A single 3-0 Vicryl sutures placed under the skin at the neck incision site. Steri-Strips were placed as well as op sites. Patient tolerated procedure well, was taken to PACU in stable condition. Chest x-ray will be obtained. Grafts/Implants Used: 8 [employer] Admit VTE Documentation VTE Mechan Device Prophylaxis: SCD's
--- NOTE | 2023-07-21 08:58 | DCINST_ITS ---
Discharge Instructions Diet Discharge Diet: Light diet - advance as tolerated Activity Discharge Activity: Return to Normal Activity and May Shower (with your bandage in place in 1 to 2 days after surgery. DO NOT SHOWER WHEN YOUR PORT IS ACCESSED.) Dressing / Incision Call your doctor if your incision/area has: Continuous Slow Oozing, Sudden Increased Bleeding, Increased Pain/ Swelling, Increased Redness and Foul Smelling Discharge Call your doctor if you observe: Fever of 101 or Higher Remove Dressing in: 2 days Cleanse incision/area with: Soap & Water Follow Up Care Please Follow Up With: Willard Rodas MD When: As needed at [phone] Test Results: Test results from this visit will be discussed in further detail at your follow- up appointment, if applicable. Discharge Plan Admission Attending Provider: Willard Rodas Primary Care Provider: Sonam Wright Discharge Orders/Prescriptions Prescriptions: No Action citalopram 20 mg tablet 40 mg PO QDAY oxycodone 10 mg tablet 10 mg PO Q6H PRN (Reason: pain) dexamethasone 4 mg tablet 8 mg PO .COMPLEX Qty: 60 0RF Rx Instructions: 8 mg orally on days 2-4 and 9-11 of chemotherapy cycle ONLY lidocaine-prilocaine 2.5-2.5 % cream 1 applic topical ONCE PRN (Reason: port access) 30 Days Qty: 30 2RF ondansetron 8 mg tablet,disintegrating 8 mg PO Q8H PRN (Reason: nausea and vomiting) Qty: 30 2RF levetiracetam 500 MG tablet 500 mg PO QHS buspirone 30 MG tablet 30 mg PO BID carbamazepine 200 MG tablet 200 mg PO 5X/DAY Hold Instructions: Order Completed levetiracetam [Keppra] 750 mg Tablet 750 mg PO BREAKFAST aripiprazole 5 mg Tablet 10 mg PO DAILY Referrals / Follow Up: Sonam Wright DO [Primary Care Provider] - Disposition Disposition (needs filled in before D/C Order can be placed): Home, Self Care
[2023-07-21 09:05] VITALS: BP 108/65; BP 110/68; PULSE 64; RESP 14; TEMP 35.7; O2SAT 93
[2023-07-21 09:30] VITALS: BP 108/65
== END 2023-07-21 09:40 | disposition home or self-care (01) ==
LOC: SDC 07:05 → AC 07:06
PROVIDERS: PCP Family Medicine; Referring Provider Surgery; Visit Provider Surgery
PROC: (CPT 36561; principal; 2023-07-21 08:30)
DX: Z45.2 Encounter for adjustment and management of vascular access device (principal); C22.1 Intrahepatic bile duct carcinoma; G40.909 Epilepsy, unspecified, not intractable, without status epilepticus; Z80.3 Family history of malignant neoplasm of breast; Z87.891 Personal history of nicotine dependence; F32.9 Major depressive disorder, single episode, unspecified; F41.9 Anxiety disorder, unspecified
CPT/HCPCS: 36561; 71045; 77001; J7120; C1788; J2405

== ENCOUNTER → 2023-08-25 | Outpatient (CLI) | payer MEDICAID, SELFPAY ==
--- NOTE | 2023-08-25 10:17 | VDLE_ITS ---
Reason For Study: Bilateral leg swelling RIGHT LEFT GSV is normal. GSV is normal. CFV is compressible, spontaneous, phasic, CFV is compressible, spontaneous, phasic, competent and demonstrates normal competent, and demonstrates normal augmentation. augmentation. FV is compressible, spontaneous, phasic, FV is compressible, spontaneous, phasic, competent and demonstrates normal competent and demonstrates normal augmentation. augmentation. POP V is compressible, spontaneous, phasic, POP V is compressible, spontaneous, phasic, competent and demonstrates normal competent and demonstrates normal augmentation. augmentation. T/P Trunk is compressible. T/P Trunk is compressible. PTV is compressible. PTV is compressible. RT PerV is compressible. LT PerV is compressible. Procedure This is a venous duplex using B-mode, color flow and spectral Doppler. Exam performed in department. A preliminary report was called and/or faxed to Casie ARANGO. VL/Venous Duplex US - Igor Extrem Interpretation Summary Deep veins of the bilateral lower extremities are patent and compressible segme ntally. There is no evidence of bilateral lower extremity deep vein thrombosis. The bilateral great saphenous veins appear patent and compressible segmentally. Ordering Physician: Maryjane Campos Referring Physician: Mabel De Anda Performed By: Chrissy Dooley RVT
== END | disposition home or self-care (01) ==
LOC: CVS 10:16
PROVIDERS: PCP Family Medicine; Referring Provider Nurse Practitioner Family; Visit Provider Nurse Practitioner Family
DX: R60.0 Localized edema (principal)
CPT/HCPCS: 93970

== ENCOUNTER → 2023-09-06 | Outpatient (CLI) | payer MEDICAID, SELFPAY ==
--- NOTE | 2023-09-06 08:13 | CT_ITS ---
STUDY: CT CHEST, ABDOMEN T PELVIS WITH CONTRAST REASON FOR EXAM: Male, 42 years old. 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 Multiplanar coronal and sagittal images were reformatted. Individualized dose optimization techniques were used for this CT. COMPARISON: Comparison is made with prior study dated June 03, 2023. FINDINGS: CHEST A right-sided portacatheter is seen with the tip in the superior vena cava. There is elevation of the right hemidiaphragm. There is evidence of a bibasilar airspace disease slightly worse on the left side. This may be related to either dependent bibasilar atelectasis versus possible infiltrate. There is no demonstrated pleural abnormality. Normal heart and pericardium. Normal mediastinum. Normal hilar regions. Normal unenhanced pulmonary arteries. Normal aorta arch and descending thoracic aorta. Normal osseous structures. Multiple hypodense nodules are seen throughout the liver. There is evidence of ascitic fluid. ABDOMEN Diffuse ascites. There are multiple hypodense nodules scattered throughout both lobes of the liver in keeping with diffuse metastatic deposits. These have increased in number as compared to prior study although several of the previously seen nodules have decreased in size. Normal gallbladder and extrahepatic biliary system. There is evidence of hepatosplenomegaly. Scattered calcified granulomas. Normal pancreas. Normal bilateral adrenal glands. Normal right kidney. Normal left kidney. Normal visualized stomach. Normal small intestine. Normal colon. The appendix is visualized and appears normal. Normal abdominal aorta. Normal inferior vena cava. Normal retroperitoneum. There appears to be thickening of the omentum with patchy soft tissue density suggestive mesenteric omental metastasis. Normal abdominal wall. Normal osseous structures. PELVIS Normal urinary bladder. Normal visualized small intestine. Normal visualized colon. There is no pelvic fluid. There is no pelvic lymphadenopathy or mass lesion. Normal visualized pelvic arteries. Normal abdominal wall. Normal osseous structures. CT/CT Chest, Abd, Pel w/Contrast IMPRESSION: Increase in numbers of hypodense nodules in the liver although several of the decrease in size. Diffuse ascites as compared to prior study. Findings suggestive of a omental metastasis. Airspace disease in both lower lobes suggestive of a either infiltration and/or dependent basilar atelectasis. Electronically Signed: Negro Mitchell MD at 10:22 EDT ,
[2023-09-06] MEDS: 0.9 % NaCl (Sterile) Posiflush 10 mL IV (08:30)
[2023-09-06] MEDS: 0.9% Saline Lock 10 ML Syringe IV (08:37)
== END | disposition home or self-care (01) ==
LOC: CT 08:12
PROVIDERS: PCP Family Medicine; Referring Provider Nurse Practitioner Family; Visit Provider Nurse Practitioner Family
DX: C22.1 Intrahepatic bile duct carcinoma (principal)
CPT/HCPCS: 71260; 74177; Q9967; A4216

== ENCOUNTER 2023-09-14 08:18 | Day surgery (SDC) | payer MEDICAID, SELFPAY ==
[2023-09-14] VITALS (7 sets, daily range): BP systolic 101–118; BP diastolic 57–72; PULSE 85–100; RESP 16–18; TEMP 36.7–37.2; O2SAT 93–100; BMI 27.9
--- NOTE | 2023-09-14 08:26 | PCM.HP.BLA ---
History and Physical Date of Admission: 09/14/23 Intake Vital Signs 09/07/2408:10 09/09/2412:33 Height 5 ft 10 in 5 ft 10 in Weight: 195 lb 4 oz 200 lb BMI 28.0 28.7 BP 111/71 122/72 H Blood Pressure Location Lt brachial Rt brachial Position Sitting Sitting Respiration 18 17 Pulse 68 87 Pulse Source Monitor Monitor Temp 97.8 F Pulse Oximetry (%) 96 91 Oxygen Delivery Method room air room air Intake Visit Reasons: Discuss Pleurex Drain Chief Complaint: discuss pleurex drain Is patient in pain?: Yes Allergies carisoprodol [From Soma] Allergy (Verified 09/10/23 13:34) seizurecyclobenzaprine [From Flexeril] Allergy (Verified 09/10/23 13:34) seizureorphenadrine [From Norflex] Allergy (Verified 09/10/23 13:34) seizure Medications buspirone 30 mg tablet 30 mg PO BID 12/24/14 [History Confirmed 09/10/23] levetiracetam 500 mg tablet 500 mg PO QHS 12/24/14 [History Confirmed 09/10/23] citalopram 20 mg tablet 40 mg PO QDAY 05/31/17 [History Confirmed 09/10/23] carbamazepine 200 mg tablet 200 mg PO 5X/DAY 10/25/18 [History Confirmed 09/10/23] aripiprazole 5 mg tablet 10 mg PO DAILY 12/19/20 [History Confirmed 09/10/23] levetiracetam 750 mg tablet (Keppra) 750 mg PO BREAKFAST 12/19/20 [History Confirmed 09/10/23] oxycodone 10 mg tablet 10 mg PO Q6H PRN pain 07/13/23 [History Confirmed 09/10/23] dexamethasone 4 mg tablet 8 mg (2 x 4 mg) PO .COMPLEX #60 tabs 07/14/23 [Rx Confirmed 09/10/23] lidocaine-prilocaine 2.5 %-2.5 % topical cream 1 applic topical ONCE PRN port access 30 days #30 grams 07/14/23 [Rx Confirmed 09/10/23] ondansetron 8 mg disintegrating tablet 8 mg PO Q8H PRN nausea and vomiting #30 tabs 07/14/23 [Rx Confirmed 09/10/23] bisacodyl 5 mg tablet 15 mg PO QHS 08/04/23 [History Confirmed 09/10/23] omeprazole 20 mg capsule,delayed release 20 mg PO DAILY #30 caps 08/25/23 [Rx Confirmed 09/10/23] PFSH Medical History Alcohol use Anemia Anxiety Bilateral lower extremity edema Bilirubinemia Cancer Cancer cachexia Cancer related pain Constipation Contusion of right shoulder region Depression Dyspepsia Encounter for chemotherapy management Encounter for education Former smoker History of coma History of irregular heartbeat History of steroid therapy History of stress test Hoarseness Hx of fracture of ankle Hypercalcemia of malignancy Hypokalemia Injury of head and neck Jaundice Malignant ascites Marijuana use Occupational exposure in workplace Peritoneal carcinomatosis Primary cholangiocarcinoma of intrahepatic bile duct Seizures Seizures Shortness of breath on exertion Wears contact lenses Wears dentures Wears glasses Surgical History History of open reduction and internal fixation (ORIF) procedure History of removal of retained hardware Hx of heart surgery laser spine Family History Grandmother Breast cancer PaternalGrandfather Cancer Maternal Social History household members: spouse Smoking Status: Former smoker quit date: 01/13/16 alcohol intake: current alcohol intake frequency: a few times a month substance use type: does not use HPI HPI HPI: Patient is a 42-year-old male known to me for metastatic cholangiocarcinoma. He is here to discuss Pleurx catheter for his malignant ascites. He is currently in hospice care. ROS General General: Yes weight change (loss ) and fatigue Psych Psychiatric: Yes depression Resp Respiratory: Yes shortness of breath and Yes sleep apnea Additional Details: undiagnosed sleep apnea but snores a lot Gastro Gastrointestinal: Yes abdominal pain and Yes nausea or vomiting Exam Const General: frail appearing Orientation: alert and oriented x3 HENMT Head: normal to inspection Neck Neck: normal visual inspection and full ROM Chest Chest palpation & inspection: normal inspection of the chest Resp Effort & Inspection: normal respiratory effort Auscultation: clear to auscultation bilaterally Cardio Rate: regular rate Rhythm: regular rhythm GI Inspection: distended Palpation: soft and tender Skin General: jaundice Neuro General: patient alert and patient oriented x3 Extrem General: full ROM Psych Appearance: grossly normal Mental Status: mental status grossly normal Office Procedures Fine Needle Aspiration Provider Documentation Details: After obtaining signed consent I prepped and draped the right side of the abdomen. Ultrasound used to localize a pocket of fluid. The area overlying this was injected with local anesthetic. The needle was placed into the abdomen under ultrasound guidance and then the catheter was placed in further and the needle was removed. Next the tubing was connected to the needle and it was connected to the bottle and we were able to aspirate about 2300 cc which made him feel much softer and more comfortable. The needle was removed and a bandage was placed over the incision. Alert Warren Alert Billing: Yes (cpt 10087) Procedure Time Out Time Out Informed consent given: Yes Consent signed: Yes Time out checklist: patient, procedure, site marked/identified, positioning of patient, supplies available, allergies confirmed and team agrees on procedure Time out staff in room: Yes Time out verified: Yes Time out date: 09/10/23 Time out time: 13:37 Assessment and Plan Assessment and Plan (1) Malignant ascites: Status: Acute Plan: I discussed Pleurx catheter placement with him in detail. I will plan on doing this Wednesday. The patient is very uncomfortable and very tense and so I consented him for paracentesis and then removed 2300 cc of fluid. He was much more comfortable after the procedure and his vitals all stayed stable. He will present on Wednesday for placement of Pleurx. I discussed the risks of the Pleurx catheter such as bleeding, infection, injury to underlying organs. Willard Rodas MD Pager: [facility] [address] [place] [address], [address] [place] [address] Office: I have examined the patient and the H&P has been reviewed. There are no clinical changes since date of exam.
[2023-09-14] MEDS: Lactated Ringers 1,000 ML 15 ML IV (08:47)
[2023-09-14] MEDS: Cefazolin 2 GM in 0.9% Normal Saline (100mL Bag) 100 ML IV (08:56)
--- NOTE | 2023-09-14 09:29 | PCM.OPRPT ---
Report of Operation Date of Procedure: 09/14/23 Pre-Operative Diagnosis: Malignant ascites Post-Operative Diagnosis: Same Surgery/Procedure Performed:: Ultrasound-guided tunneled abdominal Pleurx catheter placement Type of Anesthesia: Local MAC Specimen's removed: 5 L of ascites Drains: Pleurx catheter in the abdomen Estimated Blood Loss (mL): 5 Description of Procedure: Patient was brought back to the operating room and MAC anesthesia was induced. The right side of the abdomen was prepped and draped in the usual sterile fashion. The abdomen was inspected for ascites with ultrasound and incision was marked. Next the incision site and the site below it were both injected with local anesthetic. Incision was made with a scalpel in both areas. Next the needle was placed into the abdominal cavity and ascites was aspirated and the guidewire was placed through the needle and then the needle was removed as well as the catheter. Next the Pleurx was tunneled from the lower incision to the upper incision. The peel-away sheath was then placed through over the guidewire and the guidewire was removed. The catheter was then placed into the peel-away sheath and the peel-away sheath was removed. The catheter was connected to suction. It was draining clear straw colored ascites. The upper incision was closed with a subcuticular 3-0 Vicryl suture and Dermabond. The catheter exit site did not have much drainage and the catheter was sutured to the skin using 3-0 silk suture. Dressing was applied. 5 L of ascites was removed. Hemoglobin was stable. Patient tolerated procedure well. He was then brought to PACU in stable condition. Vitals will be monitored. Grafts/Implants Used: Pleurx catheter in the abdominal cavity Admit VTE Documentation VTE Mechan Device Prophylaxis: SCD's
--- NOTE | 2023-09-14 09:32 | DCINST_ITS ---
Discharge Instructions Diet Discharge Diet: No restrictions Activity Discharge Activity: Return to Normal Activity, May Drive and May Shower Lifting Restrictions: none Additional Activity Instructions:: Alternate ibuprofen and Tylenol for pain control Dressing / Incision Call your doctor if your incision/area has: Continuous Slow Oozing, Sudden Increased Bleeding, Increased Pain/ Swelling, Increased Redness, Foul Smelling Discharge and Swelling at the incision site Call your doctor if you observe: Fever of 101 or Higher Remove Dressing in: 3 days Cleanse incision/area with: Soap & Water Follow Up Care Please Follow Up With: Willard Rodas MD When: As needed or if there are any complications [phone] Test Results: Test results from this visit will be discussed in further detail at your follow- up appointment, if applicable. Discharge Plan Admission Attending Provider: Willard Rodas Primary Care Provider: Mabel De Anda Discharge Orders/Prescriptions Prescriptions: No Action citalopram 20 mg tablet 40 mg PO QDAY oxycodone 10 mg tablet 10 mg PO Q6H PRN (Reason: pain) lidocaine-prilocaine 2.5-2.5 % cream 1 applic topical ONCE PRN (Reason: port access) 30 Days Qty: 30 2RF ondansetron 8 mg tablet,disintegrating 8 mg PO Q8H PRN (Reason: nausea and vomiting) Qty: 30 2RF bisacodyl 5 mg tablet 15 mg PO QHS omeprazole 20 mg capsule,delayed release(DR/EC) 20 mg PO DAILY Qty: 30 2RF levetiracetam 500 MG tablet 500 mg PO QHS buspirone 30 MG tablet 30 mg PO BID carbamazepine 200 MG tablet 200 mg PO 5X/DAY Hold Instructions: Order Completed levetiracetam [Keppra] 750 mg Tablet 750 mg PO BREAKFAST aripiprazole 5 mg Tablet 10 mg PO DAILY morphine 15 mg tablet extended release 15 mg PO Q12H Referrals / Follow Up: Mabel De Anda MD [Primary Care Provider] - Disposition Disposition (needs filled in before D/C Order can be placed): Home, Self Care
[2023-09-14] MEDS: 0.9% Saline Lock 10 ML Syringe IV (10:31)
== END 2023-09-14 10:48 | disposition home or self-care (01) ==
LOC: SDC 08:20 → AC 08:21
PROVIDERS: PCP Family Medicine; Referring Provider Surgery; Visit Provider Surgery
PROC: (CPT 32550; principal; 2023-09-14 10:15)
DX: C80.1 Malignant (primary) neoplasm, unspecified (principal); R18.0 Malignant ascites; Z87.891 Personal history of nicotine dependence
CPT/HCPCS: 32550; 00524; J7120; A4216; C1729; J2405